=== PATIENT | female | born 1950 | race Caucasian/White ===

== ENCOUNTER 2018-08-30 11:11 | Outpatient (REF) | payer BC, SELFPAY ==
[2018-08-30 13:39] LABS: ALT 32 U/L (12-78); AST 18 U/L (15-37); Albumin 3.5 g/dL (3.4-5.0); Alkaline Phosphatase 108 U/L (46-116); Anion Gap 7.5 mmol/L (3-11); BUN 24 mg/dL (7-18); CO2 31.5 mmol/L (21.0-32.0); Calcium 8.7 mg/dL (8.5-10.1); Chloride 103 mmol/L (98-107); Cholesterol 125 mg/dL (50-200); Estimated GFR 55.64 (mL/min/1.73m2); Glucose 247 mg/dL (70-100); HDL Cholesterol 67 mg/dL (40-60); LDL CHOLESTEROL 49 mg/dL (<100); Magnesium 1.3 mg/dL (1.8-2.4); Potassium 4.3 mmol/L (3.5-5.1); Sodium 142 mmol/L (136-145); Triglyceride 84 mg/dL (30-150)
== END 2018-08-30 11:31 ==
LOC: NCHCN 11:11
PROVIDERS: PCP Family Medicine; Visit Provider Family Medicine
DX: E83.42 Hypomagnesemia (principal); E11.9 Type 2 diabetes mellitus without complications; Z79.4 Long term (current) use of insulin; I10 Essential (primary) hypertension; E66.01 Morbid (severe) obesity due to excess calories; E78.5 Hyperlipidemia, unspecified
CPT/HCPCS: 80053; 80061; 83721; 83735

== ENCOUNTER 2018-10-18 00:43 | Outpatient (CLI) | payer BC, SELFPAY ==
--- NOTE | 2018-10-18 16:46 | DI.RAD_ITS ---
SYMPTOMS/DIAGNOSIS: BONE DISORDER, M89.9 DEXA SCAN WITH KARRIE: The KARRIE image shows no evidence of compression fractures. The bone mineral density measurements of the lumbar spine correspond to a total T score of 1.3, in the normal range. There are significant degenerative changes , which could falsely elevated the bone mineral density measurements. The bone mineral density measurements of the left hip correspond to a total T score of 1.8 and a femoral neck T score of 0.1, in the normal range. The bone mineral density measurements of the left forearm correspond to a total T score of 0.7 and a T score of the distal third of 1.5, in the normal range. IMPRESSION: Normal bone mineral density.
== END 2018-10-18 01:03 ==
PROVIDERS: PCP Family Medicine; Visit Provider Internal Medicine
DX: M89.9 Disorder of bone, unspecified (principal)
CPT/HCPCS: 77080

== ENCOUNTER 2018-10-26 00:43 | Outpatient (CLI) | payer BC, SELFPAY ==
--- NOTE | 2018-10-26 11:18 | DI.MAMMO_ITS ---
SYMPTOMS/DIAGNOSIS: SCREENING, Z12.31 MAMMOGRAMS: Mammograms were interpreted according to the usual protocol including computer analysis with CAD system, tomosynthesis and C view imaging. Comparison is with the prior examinations. No suspicious masses or microcalcifications are seen. There is a new focal asymmetric density in the outer right breast seen on the craniocaudad view. Spot compression and a right breast ultrasound are requested for further evaluation. IMPRESSION: Additional views of the right breast as described above. Category 0. Breast density A. MQSA ASSESSMENT OF FINDINGS: Incomplete: Needs additional imaging evaluation. Category 0. Patient will receive a letter notifying them of these results. BI-RAD category A. The breasts are almost entirely fatty.
== END 2018-10-26 01:03 ==
PROVIDERS: PCP Family Medicine; Visit Provider Family Medicine
DX: Z12.31 Encounter for screening mammogram for malignant neoplasm of breast (principal); R92.8 Other abnormal and inconclusive findings on diagnostic imaging of breast
CPT/HCPCS: 77063; 77067

== ENCOUNTER 2018-11-23 00:26 | Outpatient (CLI) | payer BC, SELFPAY ==
--- NOTE | 2018-11-23 09:50 | DI.COMBO_ITS ---
SYMPTOMS/DIAGNOSIS: F/U MAMMO, FOCAL ASYMMETRIC DENSITY ADDITIONAL VIEWS OF THE RIGHT BREAST AND RIGHT BREAST ULTRASOUND: Additional images are interpreted according to the usual protocol including tomosynthesis and 2D imaging. Breast density A. Additional views of the right breast fail to show a persistent discrete mass in the area of concern. There does appear to be a well circumscribed round nodule in the outer right breast. This appears to have been present on prior examinations. A right breast ultrasound was performed. The upper outer and lower quadrants were evaluated sonographically. At the 9:00 o'clock position 3 cm from the nipple there is a rounded anechoic avascular lesion measuring 0.3 cm maximally most suggestive of a cyst and appears to correspond to the mammographic abnormality. IMPRESSION: No definite evidence for malignancy. A 6 month follow up mammogram is recommended for re-evaluation. Category 3. The findings were discussed with the patient on the date of the examination. MQSA ASSESSMENT OF FINDINGS: Probably benign. Six month follow-up recommended. Category 3. Patient will receive a letter notifying them of these results. BI-RAD category A. The breasts are almost entirely fatty.
== END 2018-11-23 00:46 ==
PROVIDERS: PCP Family Medicine; Visit Provider Family Medicine
DX: Z12.31 Encounter for screening mammogram for malignant neoplasm of breast (principal); R92.8 Other abnormal and inconclusive findings on diagnostic imaging of breast; N60.01 Solitary cyst of right breast
CPT/HCPCS: 76642; 77063; 77067

== ENCOUNTER 2019-03-14 13:05 | Outpatient (REF) | payer MEDICARE, OTHER, SELFPAY ==
[2019-03-14 18:14] LABS: BUN 21 mg/dL (7-18); CREATININE 0.98 mg/dL (0.55-1.02); Calcium 9.1 mg/dL (8.5-10.1); Chloride 100 mmol/L (98-107); Estimated GFR 56.78 (mL/min/1.73m2); Glucose 211 mg/dL (70-100); Magnesium 1.2 mg/dL (1.8-2.4); Potassium 4.9 mmol/L (3.5-5.1); Sodium 137 mmol/L (136-145)
== END 2019-03-14 13:25 ==
LOC: NCHCN 13:05
PROVIDERS: PCP Family Medicine; Visit Provider Family Medicine
DX: I10 Essential (primary) hypertension (principal); E83.42 Hypomagnesemia
CPT/HCPCS: 80048; 83735

== ENCOUNTER 2019-06-14 08:35 | Outpatient (REF) | payer MEDICARE, OTHER, SELFPAY ==
[2019-06-14 12:58] LABS: Anion Gap 11.2 mmol/L (3-11); BUN 14 mg/dL (7-18); CO2 26.8 mmol/L (21.0-32.0); CREATININE 1.03 mg/dL (0.55-1.02); Calcium 8.4 mg/dL (8.5-10.1); Chloride 104 mmol/L (98-107); Estimated GFR 53.61 (mL/min/1.73m2); Glucose 134 mg/dL (70-100); Magnesium 1.2 mg/dL (1.8-2.4); Potassium 4.1 mmol/L (3.5-5.1); Sodium 142 mmol/L (136-145)
[2019-06-15 11:04] LABS: Hepatitis C Ab w Rflx HCV PCR Negative (NEGAT)
== END 2019-06-14 08:55 ==
LOC: NCHCN 08:35
PROVIDERS: PCP Family Medicine; Visit Provider Family Medicine
DX: I10 Essential (primary) hypertension (principal); E83.42 Hypomagnesemia; E11.9 Type 2 diabetes mellitus without complications; Z79.4 Long term (current) use of insulin; Z11.59 Encounter for screening for other viral diseases
CPT/HCPCS: 80048; 86803; 83735

== ENCOUNTER 2019-08-08 01:19 | Outpatient (CLI) | payer MEDICARE, OTHER, SELFPAY ==
[2019-08-08 08:45] LABS: CREATININE 1.21 mg/dL (0.55-1.02); Estimated GFR 44.52 (mL/min/1.73m2)
[2019-08-08] MEDS: Omnipaque 350 MG/ML 100 ML BTL IJ (09:58)
--- NOTE | 2019-08-08 10:00 | DI.CT_ITS ---
EXAM: CT ABDOMEN PELVIS W CLINICAL HISTORY: ABD PAIN, R10.9,BLATING, FULLNESS ON EXAM. TECHNIQUE: The examination was carried out according to the usual protocol with an intravenous admin istration of 100 cc of Omnipaque 350. There is oral ingestion of dilute Omnipaque. COMPARISON: No exams were available for comparison FINDINGS: There is no acute abnormality involving the lung bases. A very large quantity of ascitic fluid is id entified. The liver appears intact. Patient is status post cholecystectomy. The pancreas is poorly seen but appears grossly normal. The spleen is intact. There are atrophic changes involving the left kidney and there is compensatory hypertrophy of the right kidney. There is no evidence of a mass or hydronephrosis. The adrenals are intact. There is no evidence of bowel obstruction. There is nothi ng to suggest an acute appendix. A 18 by 19 cm ovoid mass projects up out of the pelvis and contains solid elements. The uterus appears intact. The bladder is decompressed. A left para-aortic lymph n ode measures up to 19 mm in maximal diameter. An enlarged right para-aortic lymph node is noted as w ell measuring up to 2.9 mm. No definite pelvic adenopathy is seen. There is no evidence of an aorti c aneurysm. There are mild degenerative changes involving the lumbar spine. No localized area of scl erosis, osteolysis or bony expansion is identified. IMPRESSION: Gross ascites is demonstrated. A large pelvic and lower abdominal mass measuring up to [address] in the axial plane is demonstrated. Periaortic adenopathy is identified. 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
[2019-08-08] MEDS: Omnipaque 350 MG/ML 50 ML BTL PO (10:03)
[2019-08-08] MEDS: Breeza Beverage 473 ML BTL PO (10:03)
== END 2019-08-08 01:39 ==
PROVIDERS: PCP Family Medicine; Visit Provider Family Medicine
DX: R10.9 Unspecified abdominal pain (principal); R14.0 Abdominal distension (gaseous); R19.00 Intra-abdominal and pelvic swelling, mass and lump, unspecified site; R59.0 Localized enlarged lymph nodes
CPT/HCPCS: 74177; 82565; J3490; Q9967

== ENCOUNTER 2019-09-24 13:43 | Emergency (ER) | payer MEDICARE, OTHER, SELFPAY ==
[2019-09-24 13:55] VITALS: BP 103/35; PULSE 61; RESP 17; TEMP 36.8; O2SAT 94
--- NOTE | 2019-09-24 14:16 | ED.GENADUL_ITS ---
Discharge Plan Discharge Details Chief Complaint: [facility] Primary Care Provider: Pineda Yap ED Provider: Tari Morgan Home Meds and New Rx's Prescriptions: No Action hydrocortisone [Preparation H Hydrocortisone] 1 % cream 1 applic TP BID PRNRF: 0 magnesium oxide 400 mg magnesium tablet 400 mg PO BID RF: 0 metformin 1,000 mg tablet extended release 24hr 1,000 mg PO BID RF: 0 losartan-hydrochlorothiazide 100-12.5 mg tablet 1 tab PO DAILY RF: 0 (DME) FreeStyle Test 1 EACH strip 1 ea Miscellaneous DIRECTED RF: 0 duloxetine 30 MG capsule,delayed release(DR/EC) 30 mg PO DAILY RF: 0 Lantus U-100 Insulin 100 unit/mL solution 45 unit subcut .COMPLEX RF: 0 albuterol sulfate 8.5 GM HFA aerosol inhaler 2 puff Inhalation PRN PRNRF: 0 ondansetron HCl [Zofran] 8 mg Tablet 8 mg PO PRN PRNRF: 0 oxycodone 5 mg Tablet 5 mg PO PRN PRNRF: 0 ibuprofen 600 mg Tablet 600 mg PO PRN PRNRF: 0 sennosides [senna] 8.6 mg Tablet 2 mg PO BID RF: 0 cholecalciferol (vitamin D3) [Vitamin D3] 2,000 unit Capsule 4,000 unit PO HS RF: 0 Discharge Data Discharge Date/Time-TO BE ENTERED AT DEPARTURE: 09/24/19 17:53 Medical Decision Making <Say Claros MD - Last Filed: 10/26/19 16:20> 1429 --68-year-old female with multiple medical problems, 9 days status post significant abdominal surgery including total abdominal hysterectomy and bilateral salpingo-oophorectomy with removal bilateral enlarged complex ovarian masses thought to be malignancy (biopsy pending), here with bilateral lower extremity edema and dyspnea on exertion progressive over the past 1 to 2 days. ECG was reviewed and interpreted by me: Sinus rhythm 60 bpm, normal axis, frequent PACs, poor R wave progression, no STEMI, nondiagnostic. Concern for CHF versus ISABEL versus volume overload and compression from abdominal ascites versus other. --Chest x-ray reviewed and interpreted by me: Bilateral pleural effusions. Patient had difficult IV access. Labs still pending. 16:15 -- Labs reviewed and BNP elevated 2400. Cr elevated from baseline at 1.54. Albumin low at 1.9. Will give lasix 20meq. I spoke with Dr. Vasquez who feels patient should be transferred to [facility]. Care signed out to RANDY Rick with plan to arrange for transfer to [facility]. <RANDY Nowak - Last Filed: 09/27/19 08:16> Accepted signout of patient from Dr. Say Claros pending disposition. See Dr. Claros's HPI and physical exam above for specific details. I spoke with [facility] where patient had her surgery 9 days ago. Specifically spoke with Dr. Ball of gynecology oncology who was made aware of patient's presentation to the emergency room today, mild CHF as well as mild renal insufficiency in conjunction to presentation including ascites, pleural effusions as well as distal edema bilaterally. He will accept this patient's transfer directly to the medicine floor. We will plan of care to call ground transport. Patient agrees with plan of care HPI <Say Claros MD - Last Filed: 10/26/19 16:20> General Mode of arrival: ambulatory . Date/Time Provider Initiated Documentation: 09/24/19 13:47 . Limitations to Documentation: no limitations . Information obtained by: patient . HPI Narrative: 68-year-old female with history of coronary artery disease, hyperlipidemia, hypertension, morbid obesity, insulin dependent diabetes, 9 days status post total abdominal hysterectomy with bilateral salpingo-oophorectomy with removal of bilateral and large complex ovarian masses, anterior pelvic peritoneum ectomy, right peritoneum ectomy, right ureteral lysis, appendectomy and total omentectomy, here today with chief complaint of leg swelling. Patient notes over the past 2 days she is had progressively worsening edema of her lower extremities. Symptoms are now moderate to severe. No modifiers. She has associated dyspnea on exertion and orthopnea. Patient denies chest pain. Abdominal swelling has persisted since surgery. She does note that her surgical wounds have been leaking since surgery. No fever. Wounds without any significant inflammation. Related Data Home Medications Medication Instructions Recorded Confirmed albuterol sulfate 2 puff INHALATION PRN PRN 09/29/13 10/20/19 blood sugar diagnostic [Freestyle strip 01/07/15 08/15/19 Test Strips] duloxetine 30 mg PO DAILY 01/07/15 10/20/19 hydrocortisone 1 % topical cream 1 applic TP BID PRN 08/15/19 10/20/19 insulin glargine 100 unit/mL 45 unit SUBCUT .COMPLEX ml 08/15/19 10/20/19 subcutaneous solution losartan 100 1 tab PO DAILY 08/15/19 10/20/19 mg-hydrochlorothiazide 12.5 mg tablet magnesium oxide 400 mg PO BID 08/15/19 10/20/19 metformin 1,000 mg tablet,extended 1,000 mg PO BID 08/15/19 10/20/19 release 24hr cholecalciferol (vitamin D3) 4,000 unit PO HS 09/24/19 10/20/19 [Vitamin D3] ibuprofen 600 mg PO PRN PRN 09/24/19 10/20/19 sennosides [senna] 2 mg PO BID 09/24/19 10/20/19 ondansetron HCl [Zofran] 8 mg PO PRN PRN 10/20/19 10/20/19 oxycodone 5 mg PO PRN PRN 10/20/19 10/20/19 Allergies Allergy/AdvReac Type Severity Reaction Status Date / Time atenolol Allergy Unknown Unverified 10/20/19 07:36 lisinopril AdvReac Intermediate Unverified 10/20/19 07:36 General Stated Complaint: GenMedical EMILY: 3 Review of Systems <Say Claros MD - Last Filed: 10/26/19 16:20> All systems reviewed & are unremarkable except as noted in HPI and below Constitutional Constitutional: Denies fever(s) Cardiovascular Cardiovascular: Denies chest pain, Reports dyspnea on exertion and Reports orthopnea Respiratory Respiratory: Reports dyspnea on exertion Genitourinary Genitourinary: Denies urinary hesitancy PFSH <Say Claros MD - Last Filed: 10/26/19 16:20> Social History Smoking/Tobacco Use Status: Never Alcohol Intake: never Drug use: Never Substance use type: does not use Do you feel safe at home: Yes Do you feel safe in your relationship?: Yes Exam <Say Claros MD - Last Filed: 10/26/19 16:20> Const General: cooperative and no acute distress HENMT Mouth: moist mucous membranes Eyes Conjunctivae: normal conjunctivae Sclera: normal sclerae Neck Neck: trachea midline and supple Resp Auscultation: clear to auscultation bilaterally, no rales, no rhonchi and no wheezes Cardio Jugular venous pressure: no JVD Rate: regular rate and not tachycardic Rhythm: regular rhythm Heart Sounds: murmur systolic II/ GI Inspection: distended Palpation: soft, not firm, no guarding, no masses, not rigid and nontender Skin General skin exam: no rashes or lesions noted Other: abdominal wound stapled without erythema or induration Neuro General: alert, awake, oriented x3 and tone normal Extrem General: no calf tenderness and edema Laterality: bilateral (3+ pitting) Psych Appearance: grossly normal Mental Status: mental status grossly normal Course <Say Claros MD - Last Filed: 10/26/19 16:20> Vital Signs Vital signs: Vital Signs Temperature 36.8 C 09/24/19 13:55 Pulse 61 09/24/19 13:55 Respiratory Rate 17 09/24/19 13:55 Blood Pressure 103/35 L 09/24/19 13:55 Pulse Oximetry 94 L 09/24/19 13:55 Temperature 36.8 C 09/24/19 13:55 Temperature Source Skin 09/24/19 13:55 Pulse 61 09/24/19 13:55 Respiratory Rate 17 09/24/19 13:55 Blood Pressure 103/35 L 09/24/19 13:55 Blood Pressure Position Sitting 09/24/19 13:55 Pulse Oximetry 94 L 09/24/19 13:55 Oxygen Delivery Method Room Air 09/24/19 13:55 Oxygen Flow Rate 0 09/24/19 13:55 Sign Out <Say Claros MD - Last Filed: 10/26/19 16:20> Sign Out Data: Sign Out Comment: Discussed with [facility] gynonc for likely transfer. Last updated by Say Claros MD at 09/24/19 16:20
[2019-09-24 15:33] VITALS: BP 116/54; PULSE 64; RESP 16; TEMP 36.6; O2SAT 97
[2019-09-24 15:34] LABS: Abs Immature Grans 0.08 k/cumm (0.0-0.09); Absolute Basophil Count 0.01 k/cumm (0.0-0.2); Absolute Eosinophil Count 0.03 k/cumm (0.0-0.7); Absolute Lymphocyte Count 0.74 k/cumm (1.2-3.4); Absolute Monocyte Count 0.76 k/cumm (0.11-0.7); Absolute Neutrophil Count 8.14 k/cumm (1.2-6.7); Basophils % 0.1; Eosinophils % 0.3; HCT 32.4 % (36.0-46.0); HGB 10.3 g/dL (12.0-15.5); Immature Grans % 0.8; Lymphocytes % 7.6; Mean Corp. HGB Concentration 31.8 g/dL (32.0-36.0); Mean Corpuscular Hemoglobin 30.3 pg (27.0-33.0); Mean Corpuscular Volume 95.3 fL (80-95); Mean Platelet Volume 8.7 fL (8.0-11.0); Monocytes % 7.8; Neutrophils % 83.4; Platelet Count 523 x1000/uL (130-400); RBC Distribution Width 17.1 % (11.7-14.6); White Blood Cell Count 9.76 k/cumm (4.4-10.8)
--- NOTE | 2019-09-24 15:48 | DI.RAD_ITS ---
EXAM: XR CHEST 2V PA LATERAL INDICATION: Dyspnea on exertion COMPARISON: No exams were available for comparison TECHNIQUE: 2D digital imaging was performed. FINDINGS: Heart size is at the upper limits of normal. There is prominence of the pulmonary vasculature. Ther e are bilateral pleural effusions. Bilateral infiltrates are also noted. These may represent areas of atelectasis or pneumonia. No pneumothorax is identified. There are degenerative changes seen in the spine. IMPRESSION: Findings which may represent heart failure or pneumonia. Please correlate clinically.
[2019-09-24 15:54] LABS: ALT 20 U/L (14-59); AST 25 U/L (15-37); Albumin 1.9 g/dL (3.4-5.0); Alkaline Phosphatase 138 U/L (46-116); Anion Gap 9.5 mmol/L (3-11); BUN 36 mg/dL (7-18); Bilirubin, Total 0.3 mg/dL (0.2-1.0); CO2 25.5 mmol/L (21.0-32.0); CREATININE 1.54 mg/dL (0.55-1.02); Chloride 105 mmol/L (98-107); Glucose 236 mg/dL (70-100); NT-proBNP 2406 pg/mL; Potassium 4.6 mmol/L (3.5-5.1); Sodium 140 mmol/L (136-145); Total Protein 5.6 g/dL (6.4-8.2); Troponin I < 0.05 ng/mL (0.00-0.06)
[2019-09-24 15:55] VITALS: RESP 16
--- NOTE | 2019-09-24 16:24 | DI.VRAD_ITS ---
PROCEDURE INFORMATION: Exam: XR Chest, 2 Views Exam date and time: 09/24/2019 3:44 PM Clinical history: 68 years old, female; Other: [place] TECHNIQUE: Imaging protocol: XR of the chest Views: 2 views. COMPARISON: No relevant prior studies available. FINDINGS: Lungs: There some hazy increased reticular markings in both lungs consistent with mild pulmonary edema and scattered areas of subsegmental atelectasis. Pleural space: There is slight cephalization of flow. There is blunting of both costophrenic angles consistent with bilateral small to moderate-sized pleural effusions. Heart/Mediastinum: The heart is mildly enlarged. Bones/joints: Mild spondylosis of the thoracic spine.. IMPRESSION: Findings consistent with mild to moderate CHF. Dictated and Authenticated by: Alessandro Montes De Oca MD. Ordering:CHESTER Deal MD
[2019-09-24] MEDS: Furosemide 20 MG/2 ML VIAL IVP (16:27)
== END 2019-09-24 17:53 ==
PROVIDERS: Student in an Organized Health Care Education/Training Program; Emergency Provider Physician Assistant; PCP Family Medicine
DX: R60.0 Localized edema (principal); R06.09 Other forms of dyspnea; J90 Pleural effusion, not elsewhere classified; Y83.6 Removal of other organ (partial) (total) as the cause of abnormal reaction of the patient, or of later complication, without mention of misadventure at the time of the procedure; E11.40 Type 2 diabetes mellitus with diabetic neuropathy, unspecified; Z79.4 Long term (current) use of insulin; I10 Essential (primary) hypertension
CPT/HCPCS: 36415; 51701; 80053; 93005; 96374; 99285; 71046; 83880; 84484; 85025; 93010; J1941

== ENCOUNTER 2019-10-20 07:07 | Emergency (ER) | payer MEDICARE, SELFPAY ==
[2019-10-20] VITALS (62 sets, daily range): BP systolic 69–138; BP diastolic 46–115; PULSE 63–170; RESP 17–34; TEMP 36.7; O2SAT 97–100
--- NOTE | 2019-10-20 07:24 | W.ED.GENAD ---
Discharge Plan Disposition Patient Disposition: [facility] Condition: Critical Discharge Details Chief Complaint: SOB Clinical Impression: Atrial fibrillation, Pleural effusion Primary Care Provider: Pineda Yap ED Provider: Say Claros Home Meds and New Rx's Prescriptions: No Action hydrocortisone [Preparation H Hydrocortisone] 1 % cream 1 applic TP BID PRNRF: 0 magnesium oxide 400 mg magnesium tablet 400 mg PO BID RF: 0 metformin 1,000 mg tablet extended release 24hr 1,000 mg PO BID RF: 0 losartan-hydrochlorothiazide 100-12.5 mg tablet 1 tab PO DAILY RF: 0 (DME) FreeStyle Test 1 EACH strip 1 ea Miscellaneous DIRECTED RF: 0 duloxetine 30 MG capsule,delayed release(DR/EC) 30 mg PO DAILY RF: 0 Lantus U-100 Insulin 100 unit/mL solution 45 unit subcut .COMPLEX RF: 0 albuterol sulfate 8.5 GM HFA aerosol inhaler 2 puff Inhalation PRN PRNRF: 0 ondansetron HCl [Zofran] 8 mg Tablet 8 mg PO PRN PRNRF: 0 oxycodone 5 mg Tablet 5 mg PO PRN PRNRF: 0 ibuprofen 600 mg Tablet 600 mg PO PRN PRNRF: 0 sennosides [senna] 8.6 mg Tablet 2 mg PO BID RF: 0 cholecalciferol (vitamin D3) [Vitamin D3] 2,000 unit Capsule 4,000 unit PO HS RF: 0 Discharge Data Discharge Date/Time-TO BE ENTERED AT DEPARTURE: 10/20/19 12:39 Medical Decision Making <Jarek Aguilar MD - Last Filed: 10/23/19 23:11> Patient arrives to ED in rapid atrial fibrillation with complaint of shortness of breath. She has significant bilateral lower extremity edema. She has relatively clear lungs. She has metastatic pancreatic cancer and received her first round of chemo on Wednesday. She appears to be extremely pale. EMS had accessed her port and gave 10 mg of diltiazem. Heart rate had come down from the 180 range to 150?160 range. Repeat bolus of Cardizem 10 mg ordered as well as infusion. Laboratory studies, EKG, portable chest x-ray ordered. Need to consider PE as a possibility and may need CTA of the chest but will wait for creatinine to return. She also seems markedly anemic so type and screen ordered. Port needed to be reaccessed here as the hub did not seem to be in the correct place. This was done without event. She has received a Cardizem bolus. Her EKG shows a rapid A. fib with nonspecific ST changes that are likely rate related. Labs and chest x-ray still pending. Medical Records Medical records reviewed: Yes I reviewed the patient's medical records. ECG Data Attestation: I personally reviewed and interpreted this ECG (s) as follows: Prior ECG tracings: not available for review Interpretation: Rapid A. fib at a rate of 161. Normal axis and intervals. Nonspecific ST changes and ST depression likely rate related. <Say Claros MD - Last Filed: 10/21/19 17:58> 8:15 --care signed out by Dr. Aguilar with plan to follow-up on CT and disposition patient. Please see his documentation regarding initial ED presentation and course. The patient was reassessed and noted to be persistently tachycardic in atrial fibrillation with improved rate from prior now on diltiazem drip. Saturating well on nasal cannula oxygen. BP improved from arrival. 9:28 --CT of the chest was interpreted by radiology: Bilateral pleural effusions, no pulmonary embolism. Labs reviewed and creatinine normal. Initial troponin elevated at 0.36. Magnesium is low at 0.9. Hemoglobin is 8.0. This is a significant drop from recent prior 10.3 09/24/2019. Plan to administer PRBC 1 unit slow infusion. Will give magnesium 1 g IV. Plan for transfer to [facility] higher level of care. I called transfer center to request transfer. 9:42 --spoke with ICU physician at [facility] who will accept patient for Dr. Dickerson. Discussed ED presentation and course including all diagnostic results. They recommend holding blood at this time. They recommend covering with antibiotic for possible PNA. Transfer pending bed confirmation. Repeat BP 83/51. Will give normal saline 250 mL bolus. 10:20 --BP improved after single 250 bolus. I called and spoke with [facility] critical care and updated them as to course. They do recommend starting heparin -hold bolus and start infusion. Bed confirmed at [facility]. -- BNP 4000. -- Patient noted to be hypotensive with systolic in the 70s and tachycardic 120s in A. fib while transitioning to EMS bed. Decision made to cardiovert atrial fibrillation given unstable and risk of transfer. Patient provided informed consent after review of risk and benefits. Electrical cardioversion performed, 120 J administered, patient converted to sinus rhythm with PACs. Heart rate in the 80s. BP improved. Repeat ECG was reviewed and interpreted by me: Sinus rhythm 81 bpm with frequent PACs. Cardizem was discontinued. Plan for transfer at this time. HPI <Jarek Aguilar MD - Last Filed: 10/23/19 23:11> General Mode of arrival: EMS. Date/Time Provider Initiated Documentation: 10/20/19 07:20. Limitations to Documentation: no limitations. Information obtained by: patient, EMS and RN notes reviewed. HPI Narrative: Patient presents to ED by ambulance with shortness of breath. Patient has a recent diagnosis of metastatic pancreatic cancer. She had surgery last month at [facility] which removed a large mass including her appendix, omentum, ovaries, fallopian tubes and uterus. Ultimately, found to be metastatic pancreatic cancer. She underwent her initial chemo on Wednesday of this week. She has had episodes of shortness of breath with exertion and lightheadedness. This morning around 2 she became short of breath more so than usual. Became progressively worse. Eventually EMS was called. She was found to have rapid A. fib in the 180 range. She has no prior history of A. fib. Port was accessed and she was given 10 mg of diltiazem IV on the way in. She was placed on oxygen. She arrives here feeling better but still obviously tachypneic and tachycardic. She denies any fever. She denies any pain. There is no chest tightness or heaviness. She has significant swelling of lower extremities which is been present since the surgery. She actually reports that it probably better than its been in the past but is still pretty significant. Related Data Home Medications Medication Instructions Recorded Confirmed albuterol sulfate 2 puff INHALATION PRN PRN 09/29/13 10/20/19 blood sugar diagnostic [Freestyle strip 01/07/15 08/15/19 Test Strips] duloxetine 30 mg PO DAILY 01/07/15 10/20/19 hydrocortisone 1 % topical cream 1 applic TP BID PRN 08/15/19 10/20/19 insulin glargine 100 unit/mL 45 unit SUBCUT .COMPLEX ml 08/15/19 10/20/19 subcutaneous solution losartan 100 1 tab PO DAILY 08/15/19 10/20/19 mg-hydrochlorothiazide 12.5 mg tablet magnesium oxide 400 mg PO BID 08/15/19 10/20/19 metformin 1,000 mg tablet,extended 1,000 mg PO BID 08/15/19 10/20/19 release 24hr cholecalciferol (vitamin D3) 4,000 unit PO HS 09/24/19 10/20/19 [Vitamin D3] ibuprofen 600 mg PO PRN PRN 09/24/19 10/20/19 sennosides [senna] 2 mg PO BID 09/24/19 10/20/19 ondansetron HCl [Zofran] 8 mg PO PRN PRN 10/20/19 10/20/19 oxycodone 5 mg PO PRN PRN 10/20/19 10/20/19 Allergies Allergy/AdvReac Type Severity Reaction Status Date / Time atenolol Allergy Unknown Unverified 10/20/19 07:36 lisinopril AdvReac Intermediate Unverified 10/20/19 07:36 General Stated Complaint: SOB EMILY: 2 Review of Systems <Jarek Aguilar MD - Last Filed: 10/23/19 23:11> Narrative: 08/28 Review of Systems completed and is negative except as stated above in HPI (Systems reviewed: Const, Eyes, ENT, Resp, CV, GI, , MSK, Skin, Neuro) PFSH <Jarek Aguilar MD - Last Filed: 10/23/19 23:11> Medical History CAD (coronary artery disease) (Chronic) Diabetic neuropathy (Chronic) Hyperlipidemia (Chronic) Hypertension (Chronic) 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 Tachycardic with soft pressures. O2 saturations 96% on 2 L. Const: Morbidly obese female who is extremely pale and tachypneic but not in distress. HEENT: NC/AT. Normal facial exam. Eyes: Very pale conjunctiva. Neck: Supple. Trachea midline. Lungs: Tachypneic but not in distress. Lungs relatively clear except for maybe a few rhonchi at the bases. Cor: Irr/Irr and tachy, no murmur heard but fast rate. GI: Soft and seems distended, non-tender. Neuro: A+O x 3. Normal mentation and speech. No gross motor or sensory deficit. Ext: Significant bilateral lower extremity edema. No calf tenderness. Skin: Cool and dry without rash. Course <Jarek Aguilar MD - Last Filed: 10/23/19 23:11> Vital Signs Vital signs: Vital Signs Temperature 98.1 F 10/20/19 07:18 Pulse 167 H 10/20/19 07:18 Respiratory Rate 22 10/20/19 07:18 Blood Pressure 98/64 L 10/20/19 07:18 Temperature 98.1 F 10/20/19 07:18 Temperature Source Temporal Artery Scan 10/20/19 07:18 Pulse 167 H 10/20/19 07:18 Respiratory Rate 22 10/20/19 07:18 Blood Pressure 98/64 L 10/20/19 07:18 Pain Level 0 10/20/19 07:18 Critical Care Time <Jarek Aguilar MD - Last Filed: 10/23/19 23:11> Critical Care Time Critical Care Time: Yes Total Critical Care Time: 40 Attestation: Upon my evaluation, this patient had a high probability of imminent or life-threatening deterioration, which required my direct attention, intervention, and personal management. I have personally provided minutes of critical care time exclusive of time spent on separately billable procedures. Time includes review of laboratory data, radiology results, discussion with consultants, and monitoring for potential decompensation. Interventions were performed as documented above. <Say Claros MD - Last Filed: 10/21/19 17:58> Critical Care Time Critical Care Time: Yes Total Critical Care Time: 45 Attestation: I spent greater than 45 minutes addresssing this patient's immediate life threats. Sign Out <Jarek Aguilar MD - Last Filed: 10/23/19 23:11> Sign Out Data: Sign Out Comment: Patient's heart rate continues to vary from a low of 120 to a high of 150. She received another 5 mg of Cardizem bolus and a drip increased to 10 mg. Laboratory studies are still pending. Blood pressure continues to be a little soft so she is getting a to 50 mL bolus. Care signed over to Dr. Claros. Last updated by Jarek Aguilar MD at 10/20/19 08:13
[2019-10-20] MEDS: dilTIAZem 25 MG/5 ML VIAL 10 MG IVP (07:31)
--- NOTE | 2019-10-20 07:38 | DI.RAD_ITS ---
EXAM: XR PORTABLE CHEST AP INDICATION: SOB. COMPARISON: XR CHEST 2V PA LATERAL from 09/24/2019 TECHNIQUE: 2D digital imaging was performed. FINDINGS: The heart is at the upper limits of normal in size given the projection. There has been interval eleazar cement of a right indwelling central venous catheter. The tip of the catheter is seen at the junctio n of the superior vena cava and right atrium. There has been interval increase in size of the left p leural effusion which is now moderately large and occupies half of the left hemithorax. There is a l eft basilar infiltrate that may represent atelectasis or pneumonia. No pneumothorax is identified. Degenerative changes are seen in the spine. There is mild prominence of the interstitium bilaterally . IMPRESSION: 1. Interval increase in size of the left pleural effusion 2. Bilateral basilar infiltrates. This may represent atelectasis or pneumonia 3. Prominent interstitium which may reflect interstitial edema.
[2019-10-20] MEDS: dilTIAZem 125 MG in Normal Saline 100 ML IV (07:43)
[2019-10-20 07:51] LABS: Abs Immature Grans 0.11 k/cumm (0.0-0.09); Absolute Lymphocyte Count 0.16 k/cumm (1.2-3.4); HCT 25.7 % (36.0-46.0); Immature Grans % 0.8; Lymphocytes % 1.2; Mean Corp. HGB Concentration 31.1 g/dL (32.0-36.0); Mean Corpuscular Hemoglobin 30.1 pg (27.0-33.0); Mean Corpuscular Volume 96.6 fL (80-95); Mean Platelet Volume 9.5 fL (8.0-11.0); Monocytes % 0.4; Neutrophils % 97.6; RBC 2.66 m/cumm (4.00-5.20); RBC Distribution Width 15.8 % (11.7-14.6); White Blood Cell Count 13.47 k/cumm (4.4-10.8)
[2019-10-20 08:01] LABS: Absolute Monocyte Count 0.05 k/cumm (0.11-0.7); Absolute Neutrophil Count 13.15 k/cumm (1.2-6.7)
[2019-10-20] MEDS: dilTIAZem 25 MG/5 ML VIAL 5 MG IVP (08:01)
[2019-10-20] MEDS: Normal Saline 250 ML IV (08:01)
[2019-10-20 08:13] LABS: ALT 46 U/L (14-59); AST 74 U/L (15-37); Albumin 1.5 g/dL (3.4-5.0); Alkaline Phosphatase 107 U/L (46-116); Anion Gap 6.8 mmol/L (3-11); BUN 19 mg/dL (7-18); Bilirubin, Total 0.7 mg/dL (0.2-1.0); CO2 30.2 mmol/L (21.0-32.0); CREATININE 1.03 mg/dL (0.55-1.02); Calcium 7.5 mg/dL (8.5-10.1); Chloride 101 mmol/L (98-107); Estimated GFR 53.61 (mL/min/1.73m2); Glucose 140 mg/dL (74-106); Magnesium 0.9 mg/dL (1.8-2.4); Potassium 3.7 mmol/L (3.5-5.1); Sodium 138 mmol/L (136-145)
[2019-10-20 08:17] LABS: Troponin I 0.36 ng/Ml (<0.06)
[2019-10-20 08:18] LABS: Diff Comment RBC Morph Reviewed; Hypochromasia 1+; Platelet Count 362 x1000/uL (130-400)
--- NOTE | 2019-10-20 08:25 | DI.VRAD_ITS ---
PROCEDURE INFORMATION: Exam: XR Chest, 1 View Exam date and time: 10/20/2019 7:24 AM Age: 68 years old Clinical history: Shortness of breath TECHNIQUE: Imaging protocol: XR of the chest Views: 1 view. COMPARISON: CR XR CHEST 2V PA LATERAL 09/24/2019 3:41 PM FINDINGS: Tubes, catheters and devices: New right chest port. Tip overlying SVC right atrial junction. Overlying cardiac monitoring leads. Lungs: Large left pleural effusion and increased left basilar atelectasis. Minimal right basilar atelectasis as well. Mild interstitial edema. Pleural space: Unremarkable. No pleural effusion. No pneumothorax. Heart/Mediastinum: Cardiac enlargement. Upper abdomen: Bowel gas pattern unremarkable. Bones/joints: Multilevel thoracolumbar spondylosis and mildly accentuated mid thoracic right convex curvature. IMPRESSION: 1. Large left pleural effusion and increased left basal atelectasis. 2. Cardiomegaly and moderate CHF. Dictated and Authenticated by: Noel Mcmahon MD. Ordering:GIORGIO Tilley MD
--- NOTE | 2019-10-20 08:49 | DI.CT_ITS ---
EXAM: CT CHEST PE CTA CLINICAL HISTORY: dizzy, concern for PE, SOB TECHNIQUE: Imaging Protocol: Axial CT angiography was performed with multi-slice acquisition and mu lti-planar and/or 3D reconstructions. CONTRAST MATERIAL: Intravenous: Omnipaque 350 Contrast volume:100 mL contrast route:IV - Oral:No COMPARISON: CT ABDOMEN PELVIS W from 08/08/2019 FINDINGS: There is patient motion artifact. Pulmonary Arteries: No evidence of filling defect to suggest pulmonary emboli. Tracheobronchial tree: Patent where visualized. Mediastinum and Sarika: There is mediastinal adenopathy present. The largest lymph node is seen in the precarinal region and measures 2.9 x 2.3 centimeters. Pulmonary parenchyma: There are multiple pulmonary nodules present suspicious for metastatic disease. There are bilateral basilar infiltrates greater on the left. No architectural distortion. Pleura: There are large bilateral pleural effusions left greater than right. No pneumothorax is pres ent.. Heart/Aorta: There is no aortic aneurysm. 2. 7 x 2. 3 cm. There is no evidence of thoracic aortic aneurysm or dissection. There is mild atherosclerosis present. The heart is not dilated. There is no significant pericardial effusion. No evidence of right heart strain is present. Coronary artery ca lcifications are present. Tubes, lines, catheters: The tip of the patient's indwelling central venous catheter is in good posit ion at the junction of the superior vena cava and right atrium. Upper abdomen: Abdominal ascites is present. There is a hiatal hernia. IMPRESSION: 1. No evidence of a pulmonary embolus, thoracic aortic dissection or aneurysm. 2. Large bilateral pleural effusions and subjacent infiltrates which may represent atelectasis or pne umonia. 3. Thoracic adenopathy and multiple pulmonary nodules. Findings consistent with metastatic disease 4. Abdominal ascites. The findings were discussed with Dr. Claros of the emergency department on the date of the examinatio n. This is consistent with thoracic adenopathy of the superior vena cava and right atrium. DATA REPOSITORY: All CT scans at this facility are submitted to the National Radiology Data Registry (NRDR) Dose Index Registry (DIR) with the [employer] (A[employer]). RADIATION OPTIMIZATION: All CT scans at this facility use at least one of these dose optimization te chniques: automated exposure control; mA and/or kV adjustment per patient size (includes targeted exa ms where dose is matched to clinical indication); or iterative reconstruction.
[2019-10-20] MEDS: Omnipaque 350 MG/ML 100 ML BTL IV (09:05)
[2019-10-20 09:47] LABS: NT-proBNP 4220 pg/mL (<300)
[2019-10-20] MEDS: cefTRIAXone 1 GM/50 ML BAG IVPB (09:51)
[2019-10-20] MEDS: MAGNESIUM SULFATE 1 GM/100 ML BAG IVPB (10:02)
[2019-10-20] MEDS: Normal Saline 250 ML 500 ML IV (11:07)
[2019-10-20 11:10] LABS: PTT Activated 28.5 sec (21.0-31.4)
[2019-10-20] MEDS: fentaNYL 100 MCG/2 ML VIAL (12:05)
== END 2019-10-20 12:39 | disposition short-term general hospital (02) ==
PROVIDERS: Emergency Medicine; Emergency Provider Student in an Organized Health Care Education/Training Program; PCP Family Medicine
DX: I48.91 Unspecified atrial fibrillation (principal); J90 Pleural effusion, not elsewhere classified; D64.9 Anemia, unspecified; C25.9 Malignant neoplasm of pancreas, unspecified; R60.0 Localized edema; Z79.899 Other long term (current) drug therapy; Z95.828 Presence of other vascular implants and grafts; E11.9 Type 2 diabetes mellitus without complications; Z79.4 Long term (current) use of insulin; I10 Essential (primary) hypertension; E83.42 Hypomagnesemia; R00.0 Tachycardia, unspecified; R77.8 Other specified abnormalities of plasma proteins
CPT/HCPCS: 36430; 36591; 71275; 80053; 86850; 86900; 86901; 86920; 93005; 96361; 96365; 96366; 96367; 96368; 96375; 96376; 99291; 71045; 83735; 83880; 84484; 85025; 85730; 93010; J0696; J3010; J3475; J3490; P9016

== ENCOUNTER 2019-12-01 15:58 | Inpatient (IN) | payer MEDICARE, SELFPAY ==
[2019-12-01] VITALS (28 sets, daily range): BP systolic 78–113; BP diastolic 44–67; PULSE 55–145; RESP 13–31; TEMP 36.4–36.6; O2SAT 77–97
[2019-12-01 16:25] LABS: BE (Venous) 1.8 mmol/L (-3-3); HCO3 (Venous) 27 mmol/L (22-28); O2 Sat (Venous) 69 % (70-80); TCO2 (Venous) 26 mmol/L (22-29); pCO2 (Venous) 47 mm/Hg (34-47); pH (Venous) 7.37 (7.35-7.45); pO2 (Venous) 38 mm/Hg (28-44)
[2019-12-01 16:26] LABS: Lactate 1.3 mmol/L (0.6-1.4)
--- NOTE | 2019-12-01 16:28 | W.ED.GENAD ---
Discharge Plan Disposition Patient Disposition: HOME Condition: Stable Discharge Details Chief Complaint: Nausea/Vomit/Diar Clinical Impression: Diarrhea, Hypomagnesemia Primary Care Provider: Pineda Yap ED Provider: Alessandro Downing Home Meds and New Rx's Prescriptions: Continued (DME) FreeStyle Test 1 EACH strip 1 ea Miscellaneous DIRECTED RF: 0 No Action metformin 1,000 mg tablet extended release 24hr 1,000 mg PO DAILY RF: 0 duloxetine 30 MG capsule,delayed release(DR/EC) 30 mg PO DAILY RF: 0 Lantus U-100 Insulin 100 unit/mL solution 15 unit subcut HS RF: 0 losartan [Cozaar] 50 mg Tablet 50 mg PO DAILY RF: 0 atorvastatin [Lipitor] 40 mg Tablet 40 mg PO DAILY RF: 0 acetaminophen [Tylenol] 325 mg Tablet 650 mg PO Q6H PRN PRNRF: 0 amiodarone 200 mg Tablet 200 mg PO DAILY RF: 0 metoprolol succinate 50 mg Tablet Extended Release 24 Hr 50 mg PO DAILY RF: 0 folic acid 1 mg Tablet 1 mg PO DAILY RF: 0 insulin lispro [Humalog U-100 Insulin] 100 unit/mL Solution 1 - 6 sliding scale dose subcut DIRECTED RF: 0 hydrochlorothiazide 12.5 mg Tablet 12.5 mg PO DAILY RF: 0 Eliquis 5 mg Tablet 5 mg PO BID RF: 0 cholecalciferol (vitamin D3) [Vitamin D3] 2,000 unit Capsule 2,000 unit PO HS RF: 0 Discharge Instructions Instructions: Acute Diarrhea (ED), Hypomagnesemia (ED) Additional Instructions: follow up with your primary care provider within 1 week and have your magnesium level rechecked. If you have severe abdominal pain, persistent vomit, fever over 100.4 or feel more ill return to the emergency department Medical Decision Making 68 yo female with hx of morbid obesity, htn, hld, DM, maria fernanda, afib, and metastatic pancreatitc cancer comes in from home with diarrhea and feeling dehydrated. She denies any fevers, abdominal pain, travel, vomit or nauesa, just having diarrhea. She denies bloody or dark stools. She was tx'd with antibiotics last month for possible pna. She Has no abdominal tenderness on exam. I suspect possible infectious gastroenteritis and given recent abx exposure will check for c diff. She does seem dehydrated on exam with soft bp's and in afib with rates of 110-130, no chest pain or increased shortness of breath.Will give ivf, check for electrolyte abnormalities and reassess. pt feeling much better after 1 L of IVF. Labs show mag of 0.9 and anc of 0.74. Awaiting stool sample. [place] [facility] [place] who did not feel she required presumptive tx for infectious gastroenteritis if c diff negative especially without fevers, did not have any further recs and if patient was stable and feeling well otherwise can be d/c'd. pt feels much better, Bp now 101/60 and HR 60. Still has not been able to provide stool sample so will d/c with collection kit to return to lab. Has fu appt , return precautions given Differential Diagnosis Differential Diagnosis: c diff, gastroenteritis, food illness Medical Records Medical records reviewed: Yes I reviewed the patient's medical records. Lab Data Lab results reviewed: Yes I reviewed the patient's lab results. ECG Data Attestation: I personally reviewed and interpreted this ECG (s) as follows: Prior ECG tracings: not available for review Interpretation: afib, rate of 120, qtc 483, HPI General Mode of arrival: EMS. Date/Time Provider Initiated Documentation: 12/01/19 16:01. Limitations to Documentation: no limitations. Information obtained by: patient. History of Present Illness 68 year old F presents to the emergency department with the chief complaint of diarrhea, described as moderate, and it has been constant. No relieving factors improve symptom(s), No exacerbating factors reported . Patient notes other (dehydration). Patient did receive the following treatments prior to arrival, none Related Data Home Medications Medication Instructions Recorded Confirmed FreeStyle Test strip 01/07/15 08/15/19 duloxetine 30 mg PO DAILY 01/07/15 12/01/19 insulin glargine 100 unit/mL 15 unit SUBCUT HS ml 08/15/19 12/01/19 subcutaneous solution metformin 1,000 mg tablet,extended 1,000 mg PO DAILY 08/15/19 12/01/19 release 24hr cholecalciferol (vitamin D3) 2,000 unit PO HS 09/24/19 12/01/19 [Vitamin D3] acetaminophen [Tylenol] 650 mg PO Q6H PRN PRN 12/01/19 12/01/19 amiodarone 200 mg PO DAILY 12/01/19 12/01/19 apixaban [Eliquis] 5 mg PO BID 12/01/19 12/01/19 atorvastatin [Lipitor] 40 mg PO DAILY 12/01/19 12/01/19 folic acid 1 mg PO DAILY 12/01/19 12/01/19 hydrochlorothiazide 12.5 mg PO DAILY 12/01/19 12/01/19 insulin lispro [Humalog U-100 1 - 6 sliding scale dose SUBCUT 12/01/19 12/01/19 Insulin] DIRECTED losartan [Cozaar] 50 mg PO DAILY 12/01/19 12/01/19 metoprolol succinate 50 mg PO DAILY 12/01/19 12/01/19 Allergies Allergy/AdvReac Type Severity Reaction Status Date / Time No Known Allergies Allergy Unverified 12/01/19 18:18 General Stated Complaint: Nausea/Vomit/Diar EMILY: 3 Review of Systems All systems reviewed & are unremarkable except as noted in HPI and below Constitutional Constitutional: Denies chills, Denies fever(s) and Denies weakness Cardiovascular Cardiovascular: Denies chest pain and Denies dyspnea Respiratory Respiratory: Denies cough and Denies dyspnea Gastrointestinal Gastrointestinal: Denies abdominal pain, Denies nausea and Denies vomiting Musculoskeletal Musculoskeletal: Denies joint swelling Neurologic Neurologic: Denies weakness [facility] Social History (Updated 11/20/19 @ 09:56 by Tessa Ohara RN) Smoking/Tobacco Use Status: Never Alcohol Intake: never Drug use: Never Substance use type: does not use Household members: spouse current occupation: retired Do you feel safe at home: Yes Do you feel safe in your relationship?: Yes Exam Const General: no acute distress Orientation: alert HENMT Head: normal to inspection Ears: external ears normal General nose exam: external nose normal Mouth: moist mucous membranes Eyes General: appearance normal, both eyes and all related structures Neck Neck: normal visual inspection Resp Effort & Inspection: normal respiratory effort and able to speak in complete sentences Cardio Rate: regular rate GI Palpation: soft Skin General skin exam: no rashes or lesions noted Neuro General: alert and oriented x3 Extrem General: normal to inspection Psych Mental Status: mental status grossly normal Course Vital Signs Vital signs: Vital Signs Temperature 36.4 C L 12/01/19 16:03 Respiratory Rate 12/01/19 16:03 Blood Pressure 78/63 L 12/01/19 16:03 Temperature 36.4 C L 12/01/19 16:03 Temperature Source Temporal Artery Scan 12/01/19 16:03 Respiratory Rate 20 12/01/19 16:03 Blood Pressure 78/63 L 12/01/19 16:03 Blood Pressure Position Supine 12/01/19 16:03 Lab/Test Results Lab/Test Results: Laboratory Tests Range/Units 12/01/19 12/01/19 16:15 16:15 VBG pH (7.35-7.45) 7.37 VBG pCO2 (34-47) mm/Hg 47 VBG pO2 (28-44) mm/Hg 38 VBG HCO3 (22-28) mmol/L 27 VBG Total CO2 (22-29) mmol/L 26 VBG O2 Saturation (70-80) % 69 L VBG Base Excess (-3-3) mmol/L 1.8 Lactate (0.6-1.4) mmol/L 1.3
[2019-12-01 16:29] LABS: Abs Immature Grans 0.02 k/cumm (0.0-0.09); HCT 25.1 % (36.0-46.0); Mean Corp. HGB Concentration 31.9 g/dL (32.0-36.0); Mean Platelet Volume 10.5 fL (8.0-11.0); RBC 2.67 m/cumm (4.00-5.20); RBC Distribution Width 17.1 % (11.7-14.6)
[2019-12-01] MEDS: Normal Saline 1,000 ML 1000 ML IV ×2 (16:35→17:38)
[2019-12-01] MEDS: Ondansetron 4 MG/2 ML VIAL IVP (16:36)
[2019-12-01 16:37] LABS: Lipase 41 U/L (73-393); Magnesium 0.9 mg/dL (1.8-2.4)
[2019-12-01 16:42] LABS: INR 1.4 (0.9-1.1); PTT Activated 36.8 sec (21.0-31.4); Prothrombin Time 14.3 sec (9.3-11.0)
[2019-12-01 16:43] LABS: ALT 24 U/L (14-59); AST 36 U/L (15-37); Albumin 1.1 g/dL (3.4-5.0); Alkaline Phosphatase 149 U/L (46-116); Anion Gap 10.6 mmol/L (3-11); BUN 38 mg/dL (7-18); Bilirubin, Total 0.6 mg/dL (0.2-1.0); CO2 27.4 mmol/L (21.0-32.0); CREATININE 2.27 mg/dL (0.55-1.02); Chloride 100 mmol/L (98-107); Estimated GFR 21.54 (mL/min/1.73m2); Glucose 104 mg/dL (74-106); Potassium 3.5 mmol/L (3.5-5.1); Sodium 138 mmol/L (136-145); Total Protein 5.6 g/dL (6.4-8.2)
[2019-12-01 16:49] LABS: White Blood Cell Count 0.89 k/cumm (4.4-10.8)
[2019-12-01 16:50] LABS: Absolute Lymphocyte Count 0.14 k/cumm (1.2-3.4); Platelet Count 68 x1000/uL (130-400)
[2019-12-01 16:51] LABS: Absolute Neutrophil Count 0.74 k/cumm (1.2-6.7); Anisocytosis 2+; Diff Comment Manual Differential
[2019-12-01] MEDS: Acetaminophen 500 MG TAB 1000 MG PO (16:51)
[2019-12-01] MEDS: MAGNESIUM SULFATE 2 GM/50 ML BAG IVPB (16:55)
--- NOTE | 2019-12-01 18:35 | NUR.NOTE ---
pt med list updated via verification from pt portal. Nursing Note:
--- NOTE | 2019-12-01 19:11 | NUR.NOTE ---
Nursing Note: Pt states she needs to have a BM. Placed on bedpan, call light at side.
--- NOTE | 2019-12-01 19:34 | NUR.NOTE ---
Nursing Note: Stool specimen collected and sent to lab. [place] care provided. Depends in place.
--- NOTE | 2019-12-01 19:44 | NUR.NOTE ---
Holly Hernández in to access [facility] port. MD Reeder in to eval pt. plan for admission.
--- NOTE | 2019-12-01 19:46 | W.PM.HP.N ---
Date of service: 12/01/19 Time of Service: 19:46 Assessment and Plan Assessment and plan (1) Diarrhea: Status: Acute Assessment and plan: Diarrhea. Viral gastroenteritis most likely, but will check stool studies for C diff and bacterial pathogens. Supportive measures in meantime with hydration. 1. Diarrhea: IVF, await stool studies 2. Hypomagnesemia: recheck AM 3. DM: hold insulin and metformin, cover with SS 4. AF: continue Amiodarone and beta trudy 5. HTN: hold BP meds. Reviewed advance directives, requests DNR History of Present Illness History of Present Illness Chief Complaint: diarrhea Narrative: 68 female with h/o metastatic pancreatic cancer, here with 4-5 days of diarrhea, loose to wateery. No abdominal pain, nausea or vomiting. Denies recent antibiotic use, though ER note references treatment for possible pneumonia last month (patient specifically denies this). No travel, or similar illness at home. Family on drilled well. In ER initially hypotensive with rapid AF, and hypomagnesemia. Has received 2 L IVF and 2 g MgSO4. Feels substantially improved but remains too weak to go home. Admitted further management. Note ANC 740, without fever. Case reviewed with oncology who advised against empiric antibiotics in absence of fever or documented bacterial pathogen. 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) Obesity (Chronic 02/11/15) Obstructive sleep apnea (Chronic) Primary pancreatic cancer with metastasis to other site (Acute) Tubular adenoma of colon (Acute) Surgical History section X 2 Cholecystectomy S/P appendectomy (Acute) S/P hysterectomy (Acute) S/P laparotomy (Acute) Social History Smoking/Tobacco Use Status: Never Alcohol Intake: never Drug use: Never Substance use type: does not use Household members: spouse current occupation: retired Do you feel safe at home: Yes Do you feel safe in your relationship?: Yes Meds Home Medications and Allergies Home Medications Medication Instructions Recorded Confirmed Type Mike Test strip 01/07/15 08/15/19 History duloxetine 30 mg PO DAILY 01/07/15 12/01/19 History insulin glargine 100 unit/mL 15 unit SUBCUT HS ml 08/15/19 12/01/19 History subcutaneous solution metformin 1,000 mg tablet,extended 1,000 mg PO DAILY 08/15/19 12/01/19 History release 24hr cholecalciferol (vitamin D3) 2,000 unit PO HS 09/24/19 12/01/19 History [Vitamin D3] acetaminophen [Tylenol] 650 mg PO Q6H PRN PRN 12/01/19 12/01/19 History amiodarone 200 mg PO DAILY 12/01/19 12/01/19 History apixaban [Eliquis] 5 mg PO BID 12/01/19 12/01/19 History atorvastatin [Lipitor] 40 mg PO DAILY 12/01/19 12/01/19 History folic acid 1 mg PO DAILY 12/01/19 12/01/19 History hydrochlorothiazide 12.5 mg PO DAILY 12/01/19 12/01/19 History insulin lispro [Humalog U-100 1 - 6 sliding scale dose SUBCUT 12/01/19 12/01/19 History Insulin] DIRECTED losartan [Cozaar] 50 mg PO DAILY 12/01/19 12/01/19 History metoprolol succinate 50 mg PO DAILY 12/01/19 12/01/19 History Allergies Allergy/AdvReac Type Severity Reaction Status Date / Time No Known Allergies Allergy Unverified 12/01/19 18:18 Exam Narrative Exam Narrative: 97/52 (during my visit 113/systolic), 72, 20, 36.4. HEENT dry oral mucosa; neck supple; lungs clear; heart RRR; abdomen soft and NT; pelvic/rectal deferred; extremities trace pedal edema; neuro Ox3, moves all 4s. Results Labs Result diagrams: 12/01/19 16:15 12/01/19 16:15 Labs: Laboratory Results - last 24 hr 12/01/19 12/01/19 12/01/19 16:15 16:15 16:15 WBC 0.89 L* RBC 2.67 L Hgb 8.0 L Hct 25.1 L MCV 94.0 MCH 30.0 MCHC 31.9 L RDW 17.1 H Plt Count 68 L MPV 10.5 Immature Gran % 0.0 Neutrophils % 84.0 Lymphocytes % 16.0 Monocytes % 0.0 Eosinophils % 0.0 Basophils % 0.0 Absolute Neutrophils 0.74 L Absolute Lymphocytes 0.14 L Absolute Monocytes 0.00 L Absolute Eosinophils 0.00 Absolute Basophils 0.00 Differential Comment Manual differential RBC Morphology See below Anisocytosis 2+ PT INR APTT VBG pH VBG pCO2 VBG pO2 VBG HCO3 VBG Total CO2 VBG O2 Saturation VBG Base Excess Sodium Potassium Chloride Carbon Dioxide Anion Gap BUN Creatinine Estimated GFR/1.73 m2 Glucose Lactate 1.3 Calcium Magnesium 0.9 L Total Bilirubin AST ALT Alkaline Phosphatase Total Protein Albumin Lipase 41 Stool Campylobacter PCR Stool Salmonella PCR Stool Shigella PCR Shiga Toxin (PCR) 12/01/19 12/01/19 12/01/19 16:15 16:15 16:15 WBC RBC Hgb Hct MCV MCH MCHC RDW Plt Count MPV Immature Gran % Neutrophils % Lymphocytes % Monocytes % Eosinophils % Basophils % Absolute Neutrophils Absolute Lymphocytes Absolute Monocytes Absolute Eosinophils Absolute Basophils Differential Comment RBC Morphology Anisocytosis PT 14.3 H INR 1.4 H APTT 36.8 H VBG pH 7.37 VBG pCO2 47 VBG pO2 38 VBG HCO3 27 VBG Total CO2 26 VBG O2 Saturation 69 L VBG Base Excess 1.8 Sodium 138 Potassium 3.5 Chloride 100 Carbon Dioxide 27.4 Anion Gap 10.6 BUN 38 H Creatinine 2.27 H Estimated GFR/1.73 m2 21.54 Glucose 104 Lactate Calcium 7.0 L Magnesium Total Bilirubin 0.6 AST 36 ALT 24 Alkaline Phosphatase 149 H Total Protein 5.6 L Albumin 1.1 L Lipase Stool Campylobacter PCR Stool Salmonella PCR Stool Shigella PCR Shiga Toxin (PCR) 12/01/19 17:10 WBC RBC Hgb Hct MCV MCH MCHC RDW Plt Count MPV Immature Gran % Neutrophils % Lymphocytes % Monocytes % Eosinophils % Basophils % Absolute Neutrophils Absolute Lymphocytes Absolute Monocytes Absolute Eosinophils Absolute Basophils Differential Comment RBC Morphology Anisocytosis PT INR APTT VBG pH VBG pCO2 VBG pO2 VBG HCO3 VBG Total CO2 VBG O2 Saturation VBG Base Excess Sodium Potassium Chloride Carbon Dioxide Anion Gap BUN Creatinine Estimated GFR/1.73 m2 Glucose Lactate Calcium Magnesium Total Bilirubin AST ALT Alkaline Phosphatase Total Protein Albumin Lipase Stool Campylobacter PCR Cancelled Stool Salmonella PCR Cancelled Stool Shigella PCR Cancelled Shiga Toxin (PCR) Cancelled Last Vital Signs Temp 36.4 C L 12/01/19 16:03 Pulse 72 12/01/19 18:00 Resp 16 12/01/19 18:01 BP 97/52 L 12/01/19 18:00 Pulse Ox 77 L 12/01/19 16:06
--- NOTE | 2019-12-01 20:04 | NUR.NOTE ---
Pt reports 4/10 abd discomfort. has had 3 chemo treatments, [place] [facility] [place] was [place] 11/28
--- NOTE | 2019-12-01 20:28 | NUR.NOTE ---
SBP 89. MD Downing aware. pt denies dizziness lying flat, states when she tried to sit up felt dizzy. 1L NS bolus up.
[2019-12-02] VITALS (13 sets, daily range): BP systolic 84–125; BP diastolic 44–71; PULSE 55–80; RESP 18–22; TEMP 35.2–36.9; O2SAT 96–100
[2019-12-02] MEDS: POTASSIUM CHLORIDE/0.9% NACL 1,000 ML 100 MEQ IV (00:31)
[2019-12-02] MEDS: Dextrose 50%-Water 25 GM/50 ML SYR IVP ×2 (00:55→02:22)
[2019-12-02 01:10] LABS: Glucose 141 mg/dL (74-106)
[2019-12-02] MEDS: Normal Saline Flush 10 ML SYR IVP ×4 (01:14→21:33)
[2019-12-02] MEDS: Normal Saline 500 ML IV (01:40)
[2019-12-02] MEDS: POTASSIUM CHLORIDE/D5-0.9%NACL 1,000 ML 150 MEQ IV ×2 (02:47→09:43)
[2019-12-02 07:16] LABS: Abs Immature Grans 0.05 k/cumm (0.0-0.09); Absolute Lymphocyte Count 0.05 k/cumm (1.2-3.4); HCT 23.2 % (36.0-46.0); HGB 7.3 g/dL (12.0-15.5); Mean Corp. HGB Concentration 31.5 g/dL (32.0-36.0); Mean Corpuscular Volume 95.5 fL (80-95); Mean Platelet Volume 10.2 fL (8.0-11.0); RBC 2.43 m/cumm (4.00-5.20); RBC Distribution Width 17.4 % (11.7-14.6)
[2019-12-02] MEDS: Amiodarone 200 MG TAB PO (07:46)
[2019-12-02] MEDS: Folic Acid 1 MG TAB PO (07:46)
[2019-12-02] MEDS: DULoxetine 30 MG CAP PO (07:46)
[2019-12-02 07:53] LABS: Anion Gap 9.8 mmol/L (3-11); BUN 37 mg/dL (7-18); CO2 25.2 mmol/L (21.0-32.0); CREATININE 2.22 mg/dL (0.55-1.02); Calcium 6.5 mg/dL (8.5-10.1); Chloride 105 mmol/L (98-107); Glucose 119 mg/dL (74-106); Magnesium 1.1 mg/dL (1.8-2.4); Potassium 3.3 mmol/L (3.5-5.1); Sodium 140 mmol/L (136-145)
[2019-12-02 08:26] LABS: Absolute Eosinophil Count 0.01 k/cumm (0.0-0.7); Absolute Monocyte Count 0.02 k/cumm (0.11-0.7); Platelet Count 59 x1000/uL (130-400)
[2019-12-02 08:27] LABS: Nucleated RBC 1 /100WBC
[2019-12-02 08:28] LABS: Anisocytosis 2+; Hypochromasia 2+; Polychromasia Present
[2019-12-02 08:29] LABS: Poikilocytes 2+
[2019-12-02 08:30] LABS: White Blood Cell Count 0.28 k/cumm (4.4-10.8)
[2019-12-02 08:31] LABS: Diff Comment Manual Differential
[2019-12-02 08:32] LABS: Absolute Neutrophil Count 0.21 k/cumm (1.2-6.7)
--- NOTE | 2019-12-02 10:30 | DI.RAD_ITS ---
EXAM: XR PORTABLE CHEST AP CLINICAL HISTORY: dyspnea, oxygen requirement TECHNIQUE: COMPARISON: XR PORTABLE CHEST AP from 10/20/2019 FINDINGS: Portable AP chest at 1015 hours. Right Port-A-Cath again noted. Left pleural effusion again noted a s on October 20 film. Right pleural effusion again seen, this was present on CT of the chest on . Mild bilateral diffuse intrapulmonary interstitial infiltrates are noted, most prominent in the lung bases, consistent with CHF. IMPRESSION: Findings suggesting moderate CHF. Bilateral pleural effusions. Superimposed infectious process not excluded on this examination.
--- NOTE | 2019-12-02 10:38 | DI.VRAD_ITS ---
PROCEDURE INFORMATION: Exam: XR Chest, 1 View Exam date and time: 12/02/2019 10:20 AM Age: 68 years old Clinical indication: Other: Dus(lizbet, oxygen requirement TECHNIQUE: Imaging protocol: XR of the chest Views: 1 view. COMPARISON: XR PORTABLE CHEST AP 10/20/2019 7:38 AM FINDINGS: Tubes, catheters and devices: Accessed right chest port with distal catheter tip at the superior cavoatrial junction. Cardiac monitoring leads overlie the patient. Lungs: Persistent interstitial opacities. Lower lung opacities. Indistinct pulmonary vasculature. Pleural space: Large left and moderate right pleural effusion. No pneumothorax. Heart/Mediastinum: Unchanged enlarged cardiomediastinal silhouette. Bones/joints: Mild multilevel thoracolumbar spondylosis. IMPRESSION: Persistent large left pleural effusion, new right layering pleural effusion. Interstitial opacities and lower lung opacities along with parahilar fullness pulmonary vascular indistinctness. Enlarged cardiomediastinal silhouette. Constellation of findings most compatible with decompensated cardiogenic pulmonary edema. Cannot entirely exclude underlying infectious process in the proper clinical setting. Dictated and Authenticated by: Pineda Santos MD. Ordering:LISA Alvarado MD
--- NOTE | 2019-12-02 10:53 | PDOC.CMIN ---
- If Service Date Differs Date of service: 12/02/19 Time of Service: 10:53 Care Management Initial Assess REASON FOR HOSPITALIZATION:: Diarrhea PAST MEDICAL HISTORY/PAST SURGICAL HISTORY:: Medical History . CAD (coronary artery disease) (Chronic). Diabetic neuropathy (Chronic). Hyperlipidemia (Chronic). Hypertension (Chronic). 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 Obesity (Chronic 02/11/15). Obstructive sleep apnea (Chronic). Primary pancreatic cancer with metastasis to other site (Acute). Tubular adenoma of colon (Acute). Surgical History . section. X 2. Cholecystectomy. S/P appendectomy (Acute). S/P hysterectomy (Acute). S/P laparotomy (Acute) PREVIOUS FUNCTIONAL STATUS/SOCIAL/FAMILY SUPPORTS:: Faviola lives in [place] with her , Aric. They have two adult daughters, one who lives in [place] and one who lives in [place]. They both have visited recently, since she was diagnosed with metastatic pancreatic cancer. Her supports her with ADL's, but she was previously independent. CURRENT FUNCTIONAL STATUS:: Faviola was sitting up in her bed when CM met with her. She reported not feeling well at all, and being very uncomfortable. She was having difficulty engaging in conversation, likely due to pain. She reported that she would be meeting with Palliative on Wednesday, if available, and stated that her would like to be at the meeting. CM will continue to follow. ADVANCE DIRECTIVES:: None on file. Has patient been provided with information about the portal?: No Did the patient sign up for the portal?: No CODE STATUS:: DNR/DNI INSURANCE COVERAGE / FINANCIAL ISSUES:: [facility]/ [place]/ [facility] CURRENT HOME/COMMUNITY SERVICES/EQUIPMENT:: Faviola currently does not have any community services or equipment. PRIMARY CARE PHYSICIAN:: Pineda Yap POTENTIAL DISCHARGE NEEDS:: Evaluations for further needs, follow up appointments PATIENT/FAMILY EDUCATION NEEDS:: Review discharge instructions regarding medications and activity, discussion of self care needs including Ask Me Three ANTICIPATED BARRIERS TO DISCHARGE:: None identified at this time. TRANSPORTATION:: Anticipate Faviola's will drive her home via private vehicle. PLAN:: Anticpate Faviola will return home when medically cleared. Palliative has been consulted, and will meet with her here vs outpatient. Her would like to be present at the Palliative meeting. Her will drive her home via private vehicle. She will follow up with her PCP and specialists, as recommended. CM will continue to follow and support discharge planning considerations.
[2019-12-02] MEDS: levoFLOXacin 750 MG/150 ML BAG 100 MG IVPB (10:56)
--- NOTE | 2019-12-02 11:32 | PHARADMIT ---
Addendum entered by Walt Steiner III 12/06/19 12:17: Pharmacy Note Subjective Pancreatic canmer with Metastasis, here for STORE SALES LEADER Objective No VS, No Pain scale, No Labs Assessment Morphine Infusion Plan End of life care. Addendum entered by Galilea Mahajan 12/05/19 17:29: Pharmacy Note Subjective IV morphine x3 overnight Objective Pain: 8/10 this AM Assessment STORE SALES LEADER, ponaris sent up Plan IV Morphine drip started today at 1mg/hr - pt is comfortable Surg held off on paracentesis today as pain is controlled and platelet count is very low Addendum entered by Jocelyn Ware 12/04/19 16:17: Pharmacy Note Subjective pt waiting for children to get her before stopping IV dextrose per morning report Objective pain 7/10 Assessment palliative care meds ordered dextrose orders discontinued ponaris nasal emollient ordered for tomorrow should pt still need it Plan STORE SALES LEADER. pt would like to here Original Note: Admission Pharmacy Clinical Review diarrhea Code Status DNR/DNI Current Weight 104.1 kg Renally Cleared and Narrow Therapeutic Index Meds crcl ~22ml/min will ask about changing frequency of levofloxacin Iv from Q24H to Q48H QTc Value / Action Taken QTc 483 MDA aware pt is on levofloxacin, amiodarone. Md ordered tele BP Control, Fever 112/58 afebile Electrolytes reviewed ok DVT Prophylaxis apixaban Opiate Usage / Scheduled Bowel Regimen Ordered no/no(diarrhea) Plt/SCr for Heparin / Enoxaparin 59/2.22 INR for Warfarin 1.4 H/H stable, WBC/Bands 7.3/23.5 Antibiotic appropriateness levofloxacin for chemo induced neutropenia Cultures and Sensitivities cdiff - Surgical ABX d/c within 24 hr na DM control / Insulin Dosing Fs 122, on insulin aspart SS as inpt Heart Failure (Check EF%) (LUISA's, B-Block, Diuretics) na IV to PO Switch Home Meds Reviewed Home Meds Not Ordered insulin glargine 100 unit/mL subcutaneous solution 15 unit SUBCUT HS metformin 1,000 mg tablet,extended release 24hr 1,000 mg PO DAILY cholecalciferol (vitamin D3) [Vitamin D3] 2,000 unit PO HS atorvastatin [Lipitor] 40 mg PO DAILY hydrochlorothiazide 12.5 mg PO DAILY insulin lispro [Humalog U-100 Insulin] 1 - 6 sliding scale dose SUBCUT DIRECTED losartan [Cozaar] 50 mg PO DAILY Comments
[2019-12-02] MEDS: Pantoprazole 40 MG VIAL IVP ×2 (11:53→21:33)
[2019-12-02 12:29] LABS: HCT 23.6 % (36.0-46.0); HGB 7.5 g/dL (12.0-15.5)
[2019-12-02] MEDS: MAGNESIUM SULFATE 4 GM/100 ML BAG IVPB (12:58)
[2019-12-02] MEDS: POTASSIUM CHLORIDE 20 MEQ/100 ML BAG 50 MEQ IVPB ×2 (12:59→16:53)
--- NOTE | 2019-12-02 14:55 | W.PM.PROGNOT ---
Date of Service Date of service: 12/02/19 Time of Service: 14:55 Assessment and Plan Assessment and plan (1) Pancytopenia: Status: Acute Assessment and plan: Likely a combination of effects of gemcitabine and abraxane as well as her chronic anemia. Given degree of neutropenia, will give neupogen - Discussed with Dr Velasquez. Started on prophylactic levofloxacin. Septic workup pending. Continue neutropenic precautions. Avoid chemical DVT ppx and hold anticoagulation. (2) Diarrhea: Status: Acute Assessment and plan: likely side effect of chemo. C. DIff negative. Await remainder of stool studies. Patient cannot tolerate IV hydration. Provide prn loperamide. (3) Hypothermia: Status: Acute Assessment and plan: ?sign of infection. Doubt adrenal insufficiency - does not usually occur with this chemo regimen, and patient has not recently been on steroids. For now, on prophylactic levofloxacin. Await septic workup. Rule out hypothyroidism - she is on amiodarone. (4) Hypomagnesemia: Status: Acute Assessment and plan: Replete and recheck in am. MOnitor on tele. (5) Primary pancreatic cancer with metastasis to other site: Status: Chronic Assessment and plan: Consult palliative care/hospice. Patient is aware that her cancer is not curable and is in agreement with the consults. (6) Heme + stool: Status: Acute Assessment and plan: No evidence of massive bleeding. Apixaban placed on hold. Placed on IV PPI. H/H stable so far today - will recheck in am. (7) Atrial fibrillation: Status: Chronic Assessment and plan: Rate controlled. Monitor on tele. Continue amiodarone. Rule out hypothyroidism. Hold eliquis given heme + stools/anemia (8) Pulmonary edema: Status: Acute Assessment and plan: given borderline BP's, would like to offer a 1 time dose of 20 mg of IV lasix. (9) Ascites: Status: Acute Assessment and plan: May benefit from being initiated on aldactone/lasix rather than HCTZ as outpatient. Expected [place] [facility] [place] - will monitor volume status for now and diurese as tolerated. (10) Obstructive sleep apnea: Status: Chronic Assessment and plan: Refuses CPAP offered to her. Monitor O2 sats and provide supplemental O2 prn. (11) Insulin dependent type 2 diabetes mellitus: Status: Chronic Assessment and plan: Hold long acting insulin today given hypoglycemia. (12) DVT prophylaxis: Status: Acute Assessment and plan: Chemical DVT ppx contraindicated in setting of bleeding. Offer TEDs/SCD's. (13) Discharge planning issues: Status: Acute Assessment and plan: DNR/DNI Palliative care and hospice consulted Subjective Subjective Interval history since last seen: Ms Rice states that her diarrhea is slowing down. She has been having periods of abdominal cramping today diffusely. States she is short of breath - primarily with movement and positionally, because her abdomen is making it hard to breathe. She has known ascites has had to get regular paracenthesis treatments. She is already scheduled [place] [facility] [place] No dizziness, chest pain, shortness of breath, cough. Her stools have been orange and have tested Heme +. Her hemoglobin is stable today. She consents to getting a blood transfusion if needed and has had transfusions in the past. She has had hemorrhoids in the past. Feels really cold, has a sore throat, mouth feels dry, and it hurts to swallow. She also had epistaxis today from O2. She has refused to use CPAP. Hypoglycemic x 2 overnight (30's at midnight, 60 at 2 am); she has been in low 100's most of the day so far. Has only had a little bit of PO intake. Hypothermic (last temp 35.2). No fevers. Hypotensive overnight to 84/44 - 104/68 on latest recheck. Case discussed with [facility] [place] Dr Velasquez recommends trialing neupogen 480 mcg daily until neutropenic resolves. Per Dr Velasquez, her current chemotherapy regimen of gemcitabine and abraxane is not known to cause adrenal insufficiency. Exam Narrative Exam Narrative: General: Pleasant pale obese female, appears to be shivering/visibly cold, A&Ox3, mildly dyspneic at a 30 degree angle HEENT: EOMI, dry MM - I am not appreciating sores/thrush, but the patient's oral mucosa is red from a popsicle Heart: RRR, no m/r/g Lungs: Diminished breath sounds B Abdomen: ascites but not tense, soft, diffusely tender Extremities: 1+ BLE edema, 1+ pedal pulses B, no c/c. Objective Objective Clinical Data: Abnormal lab results 01/17/20 01/17/20 01/17/20 Range/Units 16:15 16:15 16:15 WBC 0.89 L* (4.4-10.8) k/cumm RBC 2.67 L (4.00-5.20) m/cumm Hgb 8.0 L (12.0-15.5) g/dL Hct 25.1 L (36.0-46.0) % MCV (80-95) fL MCHC 31.9 L (32.0-36.0) g/dL RDW 17.1 H (11.7-14.6) % Plt Count 68 L (130-400) x1000/uL Absolute Neutrophils 0.74 L (1.2-6.7) k/cumm Absolute Lymphocytes 0.14 L (1.2-3.4) k/cumm Absolute Monocytes 0.00 L (0.11-0.7) k/cumm PT 14.3 H (9.3-11.0) sec INR 1.4 H (0.9-1.1) APTT 36.8 H (21.0-31.4) sec VBG O2 Saturation (70-80) % Potassium (3.5-5.1) mmol/L BUN (7-18) mg/dL Creatinine (0.55-1.02) mg/dL Glucose (74-106) mg/dL Calcium (8.5-10.1) mg/dL Magnesium 0.9 L (1.8-2.4) mg/dL Alkaline Phosphatase (46-116) U/L Total Protein (6.4-8.2) g/dL Albumin (3.4-5.0) g/dL 12/01/19 12/01/19 12/02/19 Range/Units 16:15 16:15 01:00 WBC (4.4-10.8) k/cumm RBC (4.00-5.20) m/cumm Hgb (12.0-15.5) g/dL Hct (36.0-46.0) % MCV (80-95) fL MCHC (32.0-36.0) g/dL RDW (11.7-14.6) % Plt Count (130-400) x1000/uL Absolute Neutrophils (1.2-6.7) k/cumm Absolute Lymphocytes (1.2-3.4) k/cumm Absolute Monocytes (0.11-0.7) k/cumm PT (9.3-11.0) sec INR (0.9-1.1) APTT (21.0-31.4) sec VBG O2 Saturation 69 L (70-80) % Potassium (3.5-5.1) mmol/L BUN 38 H (7-18) mg/dL Creatinine 2.27 H (0.55-1.02) mg/dL Glucose 141 H (74-106) mg/dL Calcium 7.0 L (8.5-10.1) mg/dL Magnesium (1.8-2.4) mg/dL Alkaline Phosphatase 149 H (46-116) U/L Total Protein 5.6 L (6.4-8.2) g/dL Albumin 1.1 L (3.4-5.0) g/dL 12/02/19 12/02/19 12/02/19 Range/Units 06:43 06:43 12:05 WBC 0.28 L* D (4.4-10.8) k/cumm RBC 2.43 L (4.00-5.20) m/cumm Hgb 7.3 L 7.5 L (12.0-15.5) g/dL Hct 23.2 L 23.6 L (36.0-46.0) % MCV 95.5 H (80-95) fL MCHC 31.5 L (32.0-36.0) g/dL RDW 17.4 H (11.7-14.6) % Plt Count 59 L (130-400) x1000/uL Absolute Neutrophils 0.21 L* (1.2-6.7) k/cumm Absolute Lymphocytes 0.05 L (1.2-3.4) k/cumm Absolute Monocytes 0.02 L (0.11-0.7) k/cumm PT (9.3-11.0) sec INR (0.9-1.1) APTT (21.0-31.4) sec VBG O2 Saturation (70-80) % Potassium 3.3 L (3.5-5.1) mmol/L BUN 37 H (7-18) mg/dL Creatinine 2.22 H (0.55-1.02) mg/dL Glucose 119 H (74-106) mg/dL Calcium 6.5 L (8.5-10.1) mg/dL Magnesium 1.1 L (1.8-2.4) mg/dL Alkaline Phosphatase (46-116) U/L Total Protein (6.4-8.2) g/dL Albumin (3.4-5.0) g/dL Vital Signs Temperature 35.2 C L 12/02/19 13:35 Temperature Source Tympanic 12/02/19 13:35 Pulse 55 L 12/02/19 13:35 Pulse Rhythm Irregular 12/02/19 13:35 Pulse 72 12/01/19 18:01 Respiratory Rate 22 12/02/19 13:35 Respiratory Effort Non-Labored 12/02/19 13:35 Respiratory Depth Normal 12/02/19 13:35 Respiratory Pattern Normal 12/02/19 13:35 Blood Pressure 104/68 12/02/19 13:35 Blood Pressure Mean 63 12/01/19 18:00 Blood Pressure Position Supine 12/01/19 16:03 Pulse Oximetry 96 12/02/19 13:35 Oxygen Delivery Method Nasal Cannula 12/02/19 13:35 Oxygen Flow Rate 2 12/02/19 13:35 Pain Level 0 12/02/19 13:35 Comment 12/02/19 13:35 Intake & Output 12/01/19 12/02/19 12/02/19 23:59 11:59 23:59 Intake Total 2079 2168.333 / 2168.333 Balance 2079 2168.333 / 2168.333 Weight 104.1 kg 104.1 kg Intake: IV 2079 1868.333 / 1868.333 Oral 300 / 300 Other: Urine Color Yellow Urine Appearance Clear Clear Stool Occult Blood Positive Stool Size Moderate Small Stool Characteristics Liquid Liquid Voiding Methods Incontinent Laboratory Results WBC 0.28 k/cumm (4.4-10.8) L* D 12/02/19 06:43 RBC 2.43 m/cumm (4.00-5.20) L 12/02/19 06:43 Hgb 7.5 g/dL (12.0-15.5) L 12/02/19 12:05 Hct 23.6 % (36.0-46.0) L 12/02/19 12:05 MCV 95.5 fL (80-95) H 12/02/19 06:43 MCH 30.0 pg (27.0-33.0) 12/02/19 06:43 MCHC 31.5 g/dL (32.0-36.0) L 12/02/19 06:43 RDW 17.4 % (11.7-14.6) H 12/02/19 06:43 Plt Count 59 x1000/uL (130-400) L 12/02/19 06:43 MPV 10.2 fL (8.0-11.0) 12/02/19 06:43 Immature Gran % 0.0 % 12/02/19 06:43 Neutrophils % 72.0 12/02/19 06:43 Band Neutrophils % 2.0 % 12/02/19 06:43 Lymphocytes % 18.0 12/02/19 06:43 Monocytes % 6.0 12/02/19 06:43 Eosinophils % 2.0 12/02/19 06:43 Basophils % 0.0 12/02/19 06:43 Absolute Neutrophils 0.21 k/cumm (1.2-6.7) L* 12/02/19 06:43 Absolute Lymphocytes 0.05 k/cumm (1.2-3.4) L 12/02/19 06:43 Absolute Monocytes 0.02 k/cumm (0.11-0.7) L 12/02/19 06:43 Absolute Eosinophils 0.01 k/cumm (0.0-0.7) 12/02/19 06:43 Absolute Basophils 0.00 k/cumm (0.0-0.2) 12/02/19 06:43 Nucleated RBCs 1 /100WBC 12/02/19 06:43 Differential Comment Manual differential 12/02/19 06:43 RBC Morphology See below 12/02/19 06:43 Polychromasia Present 12/02/19 06:43 Hypochromasia 2+ 12/02/19 06:43 Poikilocytosis 2+ 12/02/19 06:43 Anisocytosis 2+ 12/02/19 06:43 PT 14.3 sec (9.3-11.0) H 12/01/19 16:15 INR 1.4 (0.9-1.1) H 12/01/19 16:15 APTT 36.8 sec (21.0-31.4) H 12/01/19 16:15 VBG pH 7.37 (7.35-7.45) 12/01/19 16:15 VBG pCO2 47 mm/Hg (34-47) 12/01/19 16:15 VBG pO2 38 mm/Hg (28-44) 12/01/19 16:15 VBG HCO3 27 mmol/L (22-28) 12/01/19 16:15 VBG Total CO2 26 mmol/L (22-29) 12/01/19 16:15 VBG O2 Saturation 69 % (70-80) L 12/01/19 16:15 VBG Base Excess 1.8 mmol/L (-3-3) 12/01/19 16:15 Sodium 140 mmol/L (136-145) 12/02/19 06:43 Potassium 3.3 mmol/L (3.5-5.1) L 12/02/19 06:43 Chloride 105 mmol/L (98-107) 12/02/19 06:43 Carbon Dioxide 25.2 mmol/L (21.0-32.0) 12/02/19 06:43 Anion Gap 9.8 mmol/L (3-11) 12/02/19 06:43 BUN 37 mg/dL (7-18) H 12/02/19 06:43 Creatinine 2.22 mg/dL (0.55-1.02) H 12/02/19 06:43 Estimated GFR/1.73 m2 22.10 (mL/min/1.73m2) 12/02/19 06:43 Glucose 119 mg/dL (74-106) H 12/02/19 06:43 Lactate 1.3 mmol/L (0.6-1.4) 12/01/19 16:15 Calcium 6.5 mg/dL (8.5-10.1) L 12/02/19 06:43 Magnesium 1.1 mg/dL (1.8-2.4) L 12/02/19 06:43 Total Bilirubin 0.6 mg/dL (0.2-1.0) 12/01/19 16:15 AST 36 U/L (15-37) 12/01/19 16:15 ALT 24 U/L (14-59) 12/01/19 16:15 Alkaline Phosphatase 149 U/L (46-116) H 12/01/19 16:15 Total Protein 5.6 g/dL (6.4-8.2) L 12/01/19 16:15 Albumin 1.1 g/dL (3.4-5.0) L 12/01/19 16:15 Lipase 41 U/L (73-393) 12/01/19 16:15 Stool Campylobacter PCR Cancelled 12/01/19 17:10 Stool Salmonella PCR Cancelled 12/01/19 17:10 Stool Shigella PCR Cancelled 12/01/19 17:10 Shiga Toxin (PCR) Cancelled 12/01/19 17:10
--- NOTE | 2019-12-02 15:19 | WOUNDCONS_ITS ---
Wound Initial Evaluation Narrative: Pt is a 68 year old female consulted for multiple pressure injuries on her left side. Pt is agreeable to consult. Camera unavailable at this time, Will attempt to get photos durring the next dressing change. Chart reviewed, including H&P, recent labs, vital signs, and other providers? reports. Pt self admittedly favors laying on left side. Injuries are characteristic of Pressure injuries. Pt reports she is being followed by [facility] wound clinic and has an appointment this coming . She states that the last time she went to the clinic they wound team debrided her ankle wound but ran out of time and did not debride the unstageable ulcer on her left hip. Pt is diabetic and immunosuppresed d/t chemotherapy for current CA. She is at high risk for skin break down and delayed wound healing. See wound assessments below. 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) Obesity (Chronic 02/11/15) Obstructive sleep apnea (Chronic) Primary pancreatic cancer with metastasis to other site (Acute) Tubular adenoma of colon (Acute) - Wound Left Ear Wound Type: Pressure Ulcer Pressure Ulcer Stage: II Wound General Appearance: Open to air Wound Surrounding Tissue Appearance: Bright Red (blanchable redness surrounding ulcer) Wound Length: 0.2 (cm) Wound Width: 0.2 (cm) Wound Depth: 0.1 (cm) Wound Drainage Amount: None Left Hip Wound Type: Pressure Ulcer Pressure Ulcer Stage: Eschar/Unstageable Wound General Appearance: Blackened, Necrotic Wound Bed Greatest Portion: Black (Eschar) Wound Surrounding Tissue Appearance: Turney, Edematous Percent of Wound Bed Granulated/Red: 10 Percent of Wound Bed Slough/Yellow: 10 Percent of Wound Bed Eschar/Black: 80 (black and white eschar) Wound Length: 5.5 (cm) Wound Width: 6.0 (cm) Wound Depth: 0.1 (cm) Wound Drainage Amount: Minimal Wound Drainage Odor: Foul Odor Wound Drainage Description: Sero Sanguineous left lateral ankle Wound Type: Pressure Ulcer Pressure Ulcer Stage: III Wound General Appearance: Unapproximated Wound Bed Greatest Portion: Pale Turney Wound Bed Lesser Portion: Red (Granulation) Wound Surrounding Tissue Appearance: Macerated Wound Length: 1.5 (cm) Wound Width: 2.0 (cm) Wound Depth: 0.3 (cm) Wound Drainage Amount: Moderate Wound Drainage Odor: None/Absent Wound Drainage Description: Serous Left Shoulder Wound Type: Skin Tear Wound General Appearance: Unapproximated Wound Length: 1.5 (cm) Wound Width: 1.5 (cm) Wound Depth: 0.1 (cm) Wound Drainage Amount: None Wound Drainage Odor: None/Absent - Circulation, Sensation, Motion Peripheral Pulse Strength: Normal Capillary Refill: Less than 3 seconds Sensation Description: Within Normal Limits Skin Temperature: Warm Skin Color: Pale - Pain Pain Level: 5 (pain when debrisoft was used on pt. tolerated fair.) Pain Scale Used: Adult - Recomendation Recomendation:: Recommendations are as follows: Left Ear- Apply bacitracin to wound bed, cover with small circular bandaid. Apply and change daily. Left Hip- Cleanse wound with debrisoft Lolly. Apply Anansept gel to eschar/woundbed. cover w/mepilex w/border. Change and apply Daily and PRN. Left lateral Ankle- Cleanse wound with debrisoft. Apply Aquacell Extra to wound bed, Cover with Mepilex w/border. Change every other day and PRN. Left Shoulder- Cleanse skin tear with NS. Apply skin prep to periwound. Place Tegaderm absorbent over skin tear. Change 12/12/19 and PRN. AVOID positioning on Pts LEFT side. Reposition Q2H. Also recommend Pt makes her follow-up appointment with [facility] wound clinic next as previously scheduled. Thank you for the Consult! Physcian/Nurse Practioner Notified: Yes (Dr. Neville) Referrals: Dietary
[2019-12-02 16:28] LABS: FREE T4 1.04 ng/dL (0.76-1.46); TSH 2.65 uIU/mL (0.36-3.74)
[2019-12-02] MEDS: Furosemide 20 MG/2 ML VIAL IVP (16:53)
[2019-12-02 17:19] LABS: Bilirubin Negative (Negative); Blood Trace-intact (Negative); Clarity Cloudy (Clear); Glucose Negative (Negative); Ketones Negative (Negative); Leukocyte Esterase Negative (Negative); Nitrite Negative (Negative); Urobilinogen 0.2 EU/dL (Up TO 0.2)
[2019-12-02 17:50] LABS: Bacteria Moderate HPF (Negative); Epithelial Cells Many HPF (Negative); Other Cells Few Transitional (Negative)
[2019-12-02 17:52] LABS: C & S Indicated? C&S Done As Ordered; Crystals Many Amorphous HPF (Negative)
[2019-12-03 03:38] VITALS: BP 125/63; PULSE 80; RESP 18; TEMP 36.6; O2SAT 100
[2019-12-03] MEDS: Dextrose 50%-Water 25 GM/50 ML SYR IVP (04:55)
[2019-12-03] MEDS: Normal Saline Flush 10 ML SYR IVP ×3 (04:55→23:14)
[2019-12-03] MEDS: DEXTROSE 10%-WATER 500 ML 100 ML IV (05:30)
[2019-12-03 07:06] LABS: Absolute Monocyte Count 0.01 k/cumm (0.11-0.7); HCT 22.4 % (36.0-46.0); HGB 7.2 g/dL (12.0-15.5); Mean Corp. HGB Concentration 32.1 g/dL (32.0-36.0); Mean Corpuscular Hemoglobin 30.3 pg (27.0-33.0); Mean Corpuscular Volume 94.1 fL (80-95); Mean Platelet Volume 10.4 fL (8.0-11.0); RBC 2.38 m/cumm (4.00-5.20); RBC Distribution Width 17.2 % (11.7-14.6)
[2019-12-03 07:15] LABS: Anion Gap 9.1 mmol/L (3-11); BUN 32 mg/dL (7-18); CO2 26.9 mmol/L (21.0-32.0); CREATININE 1.86 mg/dL (0.55-1.02); Calcium 6.7 mg/dL (8.5-10.1); Chloride 107 mmol/L (98-107); Estimated GFR 27.11 (mL/min/1.73m2); Glucose 121 mg/dL (74-106); Magnesium 1.5 mg/dL (1.8-2.4); Potassium 3.3 mmol/L (3.5-5.1); Sodium 143 mmol/L (136-145)
[2019-12-03 07:45] VITALS: BP 126/62; PULSE 82; RESP 18; TEMP 36.7; O2SAT 96
[2019-12-03] MEDS: Amiodarone 200 MG TAB PO (07:52)
[2019-12-03] MEDS: Metoprolol CR 50 MG TABCR PO (07:52)
[2019-12-03 07:57] LABS: White Blood Cell Count 0.12 k/cumm (4.4-10.8)
[2019-12-03 07:58] LABS: Absolute Lymphocyte Count 0.03 k/cumm (1.2-3.4); Absolute Neutrophil Count 0.08 k/cumm (1.2-6.7); Anisocytosis 2+; Diff Comment Manual Differential
[2019-12-03 07:59] LABS: Platelet Count 43 x1000/uL (130-400); Poikilocytes 2+
[2019-12-03] MEDS: POTASSIUM CHLORIDE 20 MEQ/100 ML BAG 50 MEQ IVPB ×2 (09:24→11:51)
[2019-12-03] MEDS: Pantoprazole 40 MG VIAL IVP ×2 (10:56→23:14)
[2019-12-03] MEDS: MAGNESIUM SULFATE 4 GM/100 ML BAG IVPB (10:56)
[2019-12-03] MEDS: Bacitracin 1 PACKET TP (10:56)
--- NOTE | 2019-12-03 13:50 | W.PM.PROGNOT ---
Date of Service Date of service: 12/03/19 Time of Service: 13:50 Assessment and Plan Assessment and plan (1) Pancytopenia: Status: Acute Assessment and plan: Likely a combination of effects of gemcitabine and abraxane as well as her chronic anemia. S/p neuopogen. As patient would like to focus on comfort measures, will d/c prophylactic antibiotics. (2) Diarrhea: Status: Acute Assessment and plan: likely side effect of chemo. C. DIff negative. Continue prn loperamide. (3) Hypothermia: Status: Acute Assessment and plan: Offer braulio hugger for comfort. (4) Hypomagnesemia: Status: Acute Assessment and plan: Stop repletion and recheck. D/c tele. (5) Primary pancreatic cancer with metastasis to other site: Status: Chronic Assessment and plan: Consult palliative care/hospice planned for tomorrow. Until then, will start modified comfort measures (keep on D10, but focus on symptom management). D10 to be d/c'ed when family has said good byes. (6) Heme + stool: Status: Acute Assessment and plan: No further workup. Continue PPI for comfort. (7) Atrial fibrillation: Status: Chronic Assessment and plan: Stop amiodarone and anticoagulation. Stop tele. (8) Pulmonary edema: Status: Acute Assessment and plan: Provide prn morphine and ativan to control anxiety/air hunger. (9) Ascites: Status: Acute Assessment and plan: Focus on comfort measures.. (10) Obstructive sleep apnea: Status: Chronic Assessment and plan: Refuses CPAP. Comfort measures only (11) Insulin dependent type 2 diabetes mellitus: Status: Chronic Assessment and plan: Hypoglycemic even off insulin. D/c insulin. (12) DVT prophylaxis: Status: Acute Assessment and plan: Comfort measures. (13) Discharge planning issues: Status: Acute Assessment and plan: DNR/DNI Palliative care and hospice consulted. Starting modified comfort measures today. Subjective Subjective Interval history since last seen: Ms Rice says that last night she really did not feel good (again, was hypoglycemic to 48). She says that she is uncomfortable and wants to focus on comfort measures at this point. However, she wants to give her daughters an opportunity to come say good bye. We discussed that hypoglycemia could be due to her impaired clearance of her insulin in setting of ISABEL or it could be her pancreas overproducing insulin because it is irritated. She verbalized that she would be ok with us continuing to give us dextrose until her children have had a chance to come say goodbye, but otherwise wants us to focus on comfort measures. We will trial boluses of morphine and ativan prn for symptom management, but keep her on D10 tonight. Exam Narrative Exam Narrative: General: Pleasant pale obese female, feels cold to touch, A&Ox3 HEENT: EOMI, dry MM Heart: not auscultated today Lungs: mildly tachypneic when talking Abdomen: ascites Extremities: 1+ BLE edema Objective Objective Clinical Data: Abnormal lab results 12/02/19 12/03/19 12/03/19 Range/Units 17:00 06:40 06:40 WBC 0.12 L* D (4.4-10.8) k/cumm RBC 2.38 L (4.00-5.20) m/cumm Hgb 7.2 L (12.0-15.5) g/dL Hct 22.4 L (36.0-46.0) % RDW 17.2 H (11.7-14.6) % Plt Count 43 L (130-400) x1000/uL Absolute Neutrophils 0.08 L* (1.2-6.7) k/cumm Absolute Lymphocytes 0.03 L (1.2-3.4) k/cumm Absolute Monocytes 0.01 L (0.11-0.7) k/cumm Potassium 3.3 L (3.5-5.1) mmol/L BUN 32 H (7-18) mg/dL Creatinine 1.86 H (0.55-1.02) mg/dL Glucose 121 H (74-106) mg/dL Calcium 6.7 L (8.5-10.1) mg/dL Magnesium 1.5 L (1.8-2.4) mg/dL Urine Protein Trace H (Negative) mg/dL Urine Blood Trace-intact H (Negative) Urine RBC 3-5 H (0-2) HPF Vital Signs Temperature 36.7 C 12/03/19 07:45 Temperature Source Tympanic 12/03/19 07:45 Pulse 82 12/03/19 07:45 Pulse Rhythm Irregular 12/03/19 07:40 Pulse 72 12/01/19 18:01 Respiratory Rate 18 12/03/19 07:45 Respiratory Effort Non-Labored 12/03/19 07:40 Respiratory Depth Normal 12/03/19 07:40 Respiratory Pattern Normal 12/03/19 07:40 Blood Pressure 126/62 12/03/19 07:45 Blood Pressure Mean 63 12/01/19 18:00 Blood Pressure Position Supine 12/01/19 16:03 Pulse Oximetry 96 12/03/19 07:45 Oxygen Delivery Method Nasal Cannula 12/03/19 07:45 Oxygen Flow Rate 3 12/03/19 07:45 Pain Level 0 12/03/19 07:45 Comment 12/02/19 13:35 Intake & Output 12/02/19 12/03/19 12/03/19 23:59 11:59 23:59 Intake Total 100 / 2268.333 750 / 750 Balance 100 / 2268.333 750 / 750 Intake: IV 100 / 1968.333 500 / 500 Oral 250 / 250 Other: Urine Color Yellow Yellow Urine Appearance Clear Clear Urine Odor None Comment pt voided large amount. diaper soaked. Pt voided in diaper with moderate amount. Stool Size Moderate Stool Characteristics Liquid Voiding Methods Incontinent Diaper Laboratory Results WBC 0.12 k/cumm (4.4-10.8) L* D 12/03/19 06:40 RBC 2.38 m/cumm (4.00-5.20) L 12/03/19 06:40 Hgb 7.2 g/dL (12.0-15.5) L 12/03/19 06:40 Hct 22.4 % (36.0-46.0) L 12/03/19 06:40 MCV 94.1 fL (80-95) 12/03/19 06:40 MCH 30.3 pg (27.0-33.0) 12/03/19 06:40 MCHC 32.1 g/dL (32.0-36.0) 12/03/19 06:40 RDW 17.2 % (11.7-14.6) H 12/03/19 06:40 Plt Count 43 x1000/uL (130-400) L 12/03/19 06:40 MPV 10.4 fL (8.0-11.0) 12/03/19 06:40 Immature Gran % 0.0 % 12/03/19 06:40 Neutrophils % 68.0 12/03/19 06:40 Band Neutrophils % 2.0 % 12/02/19 06:43 Lymphocytes % 24.0 12/03/19 06:40 Monocytes % 8.0 12/03/19 06:40 Eosinophils % 0.0 12/03/19 06:40 Basophils % 0.0 12/03/19 06:40 Absolute Neutrophils 0.08 k/cumm (1.2-6.7) L* 12/03/19 06:40 Absolute Lymphocytes 0.03 k/cumm (1.2-3.4) L 12/03/19 06:40 Absolute Monocytes 0.01 k/cumm (0.11-0.7) L 12/03/19 06:40 Absolute Eosinophils 0.00 k/cumm (0.0-0.7) 12/03/19 06:40 Absolute Basophils 0.00 k/cumm (0.0-0.2) 12/03/19 06:40 Nucleated RBCs 1 /100WBC 12/02/19 06:43 Differential Comment Manual differential 12/03/19 06:40 RBC Morphology See below 12/03/19 06:40 Polychromasia Present 12/02/19 06:43 Hypochromasia 2+ 12/02/19 06:43 Poikilocytosis 2+ 12/03/19 06:40 Anisocytosis 2+ 12/03/19 06:40 PT 14.3 sec (9.3-11.0) H 12/01/19 16:15 INR 1.4 (0.9-1.1) H 12/01/19 16:15 APTT 36.8 sec (21.0-31.4) H 12/01/19 16:15 VBG pH 7.37 (7.35-7.45) 12/01/19 16:15 VBG pCO2 47 mm/Hg (34-47) 12/01/19 16:15 VBG pO2 38 mm/Hg (28-44) 12/01/19 16:15 VBG HCO3 27 mmol/L (22-28) 12/01/19 16:15 VBG Total CO2 26 mmol/L (22-29) 12/01/19 16:15 VBG O2 Saturation 69 % (70-80) L 12/01/19 16:15 VBG Base Excess 1.8 mmol/L (-3-3) 12/01/19 16:15 Sodium 143 mmol/L (136-145) 12/03/19 06:40 Potassium 3.3 mmol/L (3.5-5.1) L 12/03/19 06:40 Chloride 107 mmol/L (98-107) 12/03/19 06:40 Carbon Dioxide 26.9 mmol/L (21.0-32.0) 12/03/19 06:40 Anion Gap 9.1 mmol/L (3-11) 12/03/19 06:40 BUN 32 mg/dL (7-18) H 12/03/19 06:40 Creatinine 1.86 mg/dL (0.55-1.02) H 12/03/19 06:40 Estimated GFR/1.73 m2 27.11 (mL/min/1.73m2) 12/03/19 06:40 Glucose 121 mg/dL (74-106) H 12/03/19 06:40 Lactate 1.3 mmol/L (0.6-1.4) 12/01/19 16:15 Calcium 6.7 mg/dL (8.5-10.1) L 12/03/19 06:40 Magnesium 1.5 mg/dL (1.8-2.4) L 12/03/19 06:40 Total Bilirubin 0.6 mg/dL (0.2-1.0) 12/01/19 16:15 AST 36 U/L (15-37) 12/01/19 16:15 ALT 24 U/L (14-59) 12/01/19 16:15 Alkaline Phosphatase 149 U/L (46-116) H 12/01/19 16:15 Total Protein 5.6 g/dL (6.4-8.2) L 12/01/19 16:15 Albumin 1.1 g/dL (3.4-5.0) L 12/01/19 16:15 Lipase 41 U/L (73-393) 12/01/19 16:15 TSH 2.65 uIU/mL (0.36-3.74) 12/02/19 01:00 Free T4 1.04 ng/dL (0.76-1.46) 12/02/19 01:00 Urine Color Yellow (Yellow) 12/02/19 17:00 Urine Clarity Cloudy (Clear) 12/02/19 17:00 Urine pH 5.0 (5-8) 12/02/19 17:00 Ur Specific [place] 1.020 (1.005-1.025) 12/02/19 17:00 Urine Protein Trace mg/dL (Negative) H 12/02/19 17:00 Urine Ketones Negative mg/dL (Negative) 12/02/19 17:00 Urine Blood Trace-intact (Negative) H 12/02/19 17:00 Urine Nitrite Negative (Negative) 12/02/19 17:00 Urine Bilirubin Negative (Negative) 12/02/19 17:00 Urine Urobilinogen 0.2 EU/dL (Up TO 0.2) 12/02/19 17:00 Ur Leukocyte Esterase Negative (Negative) 12/02/19 17:00 Urine RBC 3-5 HPF (0-2) H 12/02/19 17:00 Urine WBC 3-5 HPF (0-5) 12/02/19 17:00 Ur Epithelial Cells Many HPF (Negative) 12/02/19 17:00 Urine Crystals Many amorphous HPF (Negative) 12/02/19 17:00 Urine Bacteria Moderate HPF (Negative) 12/02/19 17:00 Urine Mucus (Negative) 12/02/19 17:00 Urine Other Few transitional (Negative) 12/02/19 17:00 Ur Culture Indicated? C&s done as ordered 12/02/19 17:00 Urine Glucose Negative mg/dL (Negative) 12/02/19 17:00 Stool Campylobacter PCR Cancelled 12/01/19 17:10 Stool Salmonella PCR Cancelled 12/01/19 17:10 Stool Shigella PCR Cancelled 12/01/19 17:10 Shiga Toxin (PCR) Cancelled 12/01/19 17:10
[2019-12-03] MEDS: DEXTROSE 10%-WATER 500 ML 50 ML IV ×2 (14:06→23:58)
[2019-12-03 14:13] VITALS: PULSE 68
[2019-12-03] MEDS: MORPHine 2 MG/ML SYR 1 MG IVP ×2 (17:50→23:29)
--- NOTE | 2019-12-03 19:19 | CMPROGNOTE_ITS ---
- If Service Date Differs Date of service: 12/03/19 Time of Service: 19:19 Care Management Progress Note S/O: Faviola was sitting up in bed when CM met with her. Her Aric was by her side. She reported that she remains uncomfortable. 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 There is a Hospice consult ordered, and she will be high priority to be seen tomorrow if she does not pass overnight. Per provider, it is likely that she will pass imminently. CM discussed arrangements and provided resources to Faviola and Aric. Faviola does not want to have a or use a home, but she wants to talk to her daughters to make sure they are comfortable with direct cremation. CM will continue to provide support and comfort to Faviola, her family, and staff. A: Faviola is a 68 year old female admitted to [facility] on 12/02/2019 with pancytopenia. 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 P: Faviola has transitioned to MUD CAR WORKER, and is awaiting her daughter's arrival for final goodbye's. Her , Aric is by her side. Hospice has been consulted, but per provider, her passing is imminent. Family is still deciding on arrangements, but they are considering Direct Cremation, followed by a small, family celebration of life later in the spring. CM will continue to follow and provide support to Faviola, her family and staff.
[2019-12-04] MEDS: MORPHine 2 MG/ML SYR 1 MG IVP ×7 (05:53→23:28)
--- NOTE | 2019-12-04 08:18 | PCNE_ITS ---
Date of service: 12/04/19 Time of Service: 08:18 History of Present Illness History of Present Illness Chief Complaint: pancreatic cancer with ascites Consults Consult date: 12/04/19 Requesting physician: Jenny Neville Assessment and Plan Assessment and plan (1) Pancytopenia: Status: Acute (2) Primary pancreatic cancer with metastasis to other site: Status: Chronic (3) Diabetic neuropathy: Status: Chronic (4) Ascites: Status: Acute (5) Discharge planning issues: Status: Acute Assessment and plan: Faviola was in the room with her and daughter. Her other daughter will be coming sometime today. She knows she does not have long to live and is comfortable with her plan to in the hospital. She understands that she may live longer than she thinks in which case she would need to leave the hospital. A friend of theirs Roberto Desai does take people in for end-of-life care. He lives just doors from them. She is willing to go to his home if absolutely necessary. But she prefers to in the hospital Bloody nose?problem with pancytopenia and thrombocytopenia. Recommended that she use a saline nasal spray Throat is quite sore. She is already on Magic mouthwash 3 times daily. This may need to be increased or changed to a different formula. Ascites?because of her low platelets they are reluctant to tap her here. That is the thing that gives her the most comfort. After speaking with Dr. Neville the plan is to increase her pain medication to help her stomach pain. We will check in on her again although it appears that unless she goes to live with Roberto Desai she will in the hospital I spoke with Dr Neville about paracentesis. Due to her thrombocytopenia it would be better to control pain than make her worse with a proceedure This document was created by [employer] recognition and may contain grammatical and translation errors. Review of Systems Narrative: She states that she has pain in the back of her throat. She does have bleeding from her nose that she thinks is because of her blood counts. She has increasing pain in her abdomen especially if she pushes her abdomen against something such as the railing of the bed. She does not think she has had any fevers or felt feverish. She is feels calvin that her pain has been so low during this whole process. She is not eating much she cannot remember her bowel movements. The plan is to wait until her daughter arrives and then turn off the infusion of D10. 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 Her family is by her side. She is spe aking in complete sentences. Her heart is regular. Her lungs are clear. She does have blood dripping from her nasal cannula. She has crusty blood in the back of her throat. Her neck is supple. Abdomen is tense with ascites. She does have some edema in both legs. Results Last Vital Signs Temp 98.1 F 12/03/19 07:45 Pulse 68 12/03/19 14:13 Resp 18 12/03/19 07:45 BP 126/62 12/03/19 07:45 Pulse Ox 96 12/03/19 07:45 Labs Result diagrams: 12/03/19 06:40 12/03/19 06:40
[2019-12-04] MEDS: Bacitracin 1 PACKET TP (08:25)
[2019-12-04] MEDS: Biotene Mouthwash 237 ML BTL MM (08:30)
--- NOTE | 2019-12-04 09:38 | NUR.NOTE ---
Nursing Note: FAMILY AND PT ARE AWAITING ARRIVAL OF DAUGHTER TO COME SEE [place]. SPOUSE STATES THAT THEY WOULD LIKE TO HOLD ALL MEDICATIONS. WHEN DAUGHTER GETS HERE THEY WOULD PROBABLY TURN OFF THE D10W AND SEE WHAT HAPPENS WITH HER SUGARS. THEY ARE AWARE HER SUGARS WILL PROBABLE DEGREASE PREVIOUS WHEN THIS IS SHUT OFF. WE WILL REVISIT FAMILY PLAN WHEN DAUGHTER GETS HERE.
[2019-12-04] MEDS: DEXTROSE 10%-WATER 500 ML 50 ML IV (09:49)
[2019-12-04 10:29] VITALS: O2SAT 99
[2019-12-04 10:30] VITALS: O2SAT 96
[2019-12-04 10:59] LABS: Campylobacter PCR Negative (Negative); Salmonella PCR Negative (Negative); Shiga Toxin PCR Negative (Negative); Shigella/Enteroinvasive Ecoli Negative (Negative)
[2019-12-04] MEDS: Sodium Chloride-Nasal SPRAY-ADULT 44 ML BTL NS ×3 (11:00→17:23)
[2019-12-04] MEDS: Pantoprazole 40 MG VIAL IVP ×2 (11:14→20:59)
[2019-12-04] MEDS: Normal Saline Flush 10 ML SYR IVP ×4 (11:14→23:28)
--- NOTE | 2019-12-04 11:50 | W.NUTCONSULT ---
Date of service: 12/04/19 Time of Service: 11:50 Nutritional Consult ASSESSMENT: 68 yo female in ICU with ascites, pulmonary edema, pancreatic cancer with mets, s/p chemotherapy with mouth sores, multiple pressure wounds on left side, NIDDM, HTN, diarrhea, hypomagnesemia. Following a clear liquid diet with minimal intake, mostly popsicles, receiving D10 for hydration/nutrition. Pallative consult pending. Actively dying. Will continue to monitor and address nutritional/hydration issues as needed. INTERVENTION: will monitor po intake, labs, weights Time Spent in Nutritional Counseling and Treatment: 0 time spent face to face
--- NOTE | 2019-12-04 12:59 | W.SURGCON ---
Date of service: 12/04/19 Time of Service: 13:00 Assessment and Plan Assessment and plan (1) Ascites: Status: Acute Assessment and plan: The patient is in the hospital for comfort measures. She is currently maintained on D10 but is considering stopping this, which may result in a quick declines of her blood sugar. Today the ascites is not symptomatic enough to require paracentesis. I will check on her tomorrow. Placing an indwelling catheter is an option but may not fit with her prognosis. We will evaluate on a day to day basis. History of Present Illness Narrative: Patient under palliative care for metastatic pancreatic cancer. Prefers to stay in the hospital for this process. She had has paracentesis performed 5 times which has improved her abdominal discomfort and SOB. The last time was [address] [facility] when about 5L was removed. She currently denies significant abdominal pain. She is somewhat SOB with speaking. At this point she does not feel paracentesis needs to be done urgently. A pigtail catheter placement was scheduled for this with [place] [facility]. Her oncology now feels the benefit of the indwelling catheter outweighs the risk of infection. 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) Obesity (Chronic 02/11/15) Obstructive sleep apnea (Chronic) Primary pancreatic cancer with metastasis to other site (Chronic) Tubular adenoma of colon (Acute) Surgical History section X 2 Cholecystectomy S/P appendectomy (Acute) S/P hysterectomy (Acute) S/P laparotomy (Acute) Social History Smoking/Tobacco Use Status: Never Alcohol Intake: never Drug use: Never Substance use type: does not use Household members: spouse current occupation: retired Do you feel safe at home: Yes Do you feel safe in your relationship?: Yes Exam Narrative Exam Narrative: Alert, conversant Abdomen distended but not tense. No significant tenderness Results Last Vital Signs Temp 98.1 F 12/03/19 07:45 Pulse 68 12/03/19 14:13 Resp 18 12/03/19 07:45 BP 126/62 12/03/19 07:45 Pulse Ox 96 12/04/19 10:30 Labs Result diagrams: 12/03/19 06:40 12/03/19 06:40 Labs: Laboratory Results - last 24 hr 12/01/19 19:25 Stool Campylobacter PCR Negative Stool Salmonella PCR Negative Stool Shigella PCR Negative Shiga Toxin (PCR) Negative
--- NOTE | 2019-12-04 13:58 | W.PM.PROGNOT ---
Date of Service Date of service: 12/04/19 Time of Service: 13:58 Assessment and Plan Assessment and plan (1) Pancytopenia: Status: Acute Assessment and plan: Likely a combination of effects of gemcitabine and abraxane as well as her chronic anemia. S/p neuopogen. No longer checking labs at this point as goal is comfort measures. Prophylactic antibiotics d/c'ed. (2) Diarrhea: Status: Acute Assessment and plan: likely side effect of chemo. C. DIff negative. Continue prn loperamide. (3) Hypothermia: Status: Acute Assessment and plan: Offer braulio hugger for comfort. (4) Hypomagnesemia: Status: Acute Assessment and plan: no longer monitoring (5) Primary pancreatic cancer with metastasis to other site: Status: Chronic Assessment and plan: Patient is on modified comfort measures - she will let us know when she is ready for D10 to be d/c'ed. She does not want to diet at home. Appreciate palliative care consult. (6) Heme + stool: Status: Acute Assessment and plan: No further workup. Continue PPI for comfort. (7) Atrial fibrillation: Status: Chronic Assessment and plan: Stop amiodarone and anticoagulation. Stop tele. (8) Pulmonary edema: Status: Acute Assessment and plan: Provide prn morphine and ativan to control anxiety/air hunger. (9) Ascites: Status: Acute Assessment and plan: Focus on comfort measures. (10) Obstructive sleep apnea: Status: Chronic Assessment and plan: Refuses CPAP. Comfort measures only (11) Insulin dependent type 2 diabetes mellitus: Status: Chronic Assessment and plan: Hypoglycemic even off insulin. On D10 until ready for it to come off. (12) DVT prophylaxis: Status: Acute Assessment and plan: Comfort measures. (13) Discharge planning issues: Status: Acute Assessment and plan: DNR/DNI Palliative care on board. Would like to in the hospital. Subjective Subjective Interval history since last seen: Ms Rice states that she does not feel like she needs paracenthesis right now. Her breathing is ok right now, and she feels comfortable. She would like to have her body donated to science when she dies. She would like to talk to care management about how to do that. She states she will let the nursing know when she is ready to have the D10 fluids d/c'ed. She met with palliative care. She does not want to at home. Exam Narrative Exam Narrative: General: Pleasant pale obese female, looks more animated, A&Ox3 HEENT: EOMI, dry MM Heart: not auscultated today Lungs: mildly tachypneic when talking Abdomen: ascites Extremities: covered in blankets Objective Objective Clinical Data: Vital Signs Temperature 36.7 C 12/03/19 07:45 Temperature Source Tympanic 12/03/19 07:45 Pulse 68 12/03/19 14:13 Pulse Rhythm Irregular 12/04/19 09:36 Pulse 72 12/01/19 18:01 Respiratory Rate 18 12/03/19 07:45 Respiratory Effort Non-Labored 12/04/19 09:36 Respiratory Depth Normal 12/04/19 09:36 Respiratory Pattern Normal 12/04/19 09:36 Blood Pressure 126/62 12/03/19 07:45 Blood Pressure Mean 63 12/01/19 18:00 Blood Pressure Position Supine 12/01/19 16:03 Pulse Oximetry 96 12/04/19 10:30 Oxygen Delivery Method Nasal Cannula 12/04/19 10:30 Oxygen Flow Rate 2 12/04/19 10:30 Pain Level 6 12/04/19 13:50 Comment 12/02/19 13:35 Intake & Output 12/03/19 12/04/19 12/04/19 23:59 11:59 23:59 Intake Total 1086.666 / 1836.666 492.5 / 492.5 Balance 1086.666 / 1836.666 492.5 / 492.5 Intake: IV 1086.666 / 1586.666 492.5 / 492.5 Other: Urine Color Yellow Yellow Urine Appearance Clear Clear Urine Odor None Comment soaked diaper Voiding Methods Incontinent Diaper Laboratory Results WBC 0.12 k/cumm (4.4-10.8) L* D 12/03/19 06:40 RBC 2.38 m/cumm (4.00-5.20) L 12/03/19 06:40 Hgb 7.2 g/dL (12.0-15.5) L 12/03/19 06:40 Hct 22.4 % (36.0-46.0) L 12/03/19 06:40 MCV 94.1 fL (80-95) 12/03/19 06:40 MCH 30.3 pg (27.0-33.0) 12/03/19 06:40 MCHC 32.1 g/dL (32.0-36.0) 12/03/19 06:40 RDW 17.2 % (11.7-14.6) H 12/03/19 06:40 Plt Count 43 x1000/uL (130-400) L 12/03/19 06:40 MPV 10.4 fL (8.0-11.0) 12/03/19 06:40 Immature Gran % 0.0 % 12/03/19 06:40 Neutrophils % 68.0 12/03/19 06:40 Band Neutrophils % 2.0 % 12/02/19 06:43 Lymphocytes % 24.0 12/03/19 06:40 Monocytes % 8.0 12/03/19 06:40 Eosinophils % 0.0 12/03/19 06:40 Basophils % 0.0 12/03/19 06:40 Absolute Neutrophils 0.08 k/cumm (1.2-6.7) L* 12/03/19 06:40 Absolute Lymphocytes 0.03 k/cumm (1.2-3.4) L 12/03/19 06:40 Absolute Monocytes 0.01 k/cumm (0.11-0.7) L 12/03/19 06:40 Absolute Eosinophils 0.00 k/cumm (0.0-0.7) 12/03/19 06:40 Absolute Basophils 0.00 k/cumm (0.0-0.2) 12/03/19 06:40 Nucleated RBCs 1 /100WBC 12/02/19 06:43 Differential Comment Manual differential 12/03/19 06:40 RBC Morphology See below 12/03/19 06:40 Polychromasia Present 12/02/19 06:43 Hypochromasia 2+ 12/02/19 06:43 Poikilocytosis 2+ 12/03/19 06:40 Anisocytosis 2+ 12/03/19 06:40 PT 14.3 sec (9.3-11.0) H 12/01/19 16:15 INR 1.4 (0.9-1.1) H 12/01/19 16:15 APTT 36.8 sec (21.0-31.4) H 12/01/19 16:15 VBG pH 7.37 (7.35-7.45) 12/01/19 16:15 VBG pCO2 47 mm/Hg (34-47) 12/01/19 16:15 VBG pO2 38 mm/Hg (28-44) 12/01/19 16:15 VBG HCO3 27 mmol/L (22-28) 12/01/19 16:15 VBG Total CO2 26 mmol/L (22-29) 12/01/19 16:15 VBG O2 Saturation 69 % (70-80) L 12/01/19 16:15 VBG Base Excess 1.8 mmol/L (-3-3) 12/01/19 16:15 Sodium 143 mmol/L (136-145) 12/03/19 06:40 Potassium 3.3 mmol/L (3.5-5.1) L 12/03/19 06:40 Chloride 107 mmol/L (98-107) 12/03/19 06:40 Carbon Dioxide 26.9 mmol/L (21.0-32.0) 12/03/19 06:40 Anion Gap 9.1 mmol/L (3-11) 12/03/19 06:40 BUN 32 mg/dL (7-18) H 12/03/19 06:40 Creatinine 1.86 mg/dL (0.55-1.02) H 12/03/19 06:40 Estimated GFR/1.73 m2 27.11 (mL/min/1.73m2) 12/03/19 06:40 Glucose 121 mg/dL (74-106) H 12/03/19 06:40 Lactate 1.3 mmol/L (0.6-1.4) 12/01/19 16:15 Calcium 6.7 mg/dL (8.5-10.1) L 12/03/19 06:40 Magnesium 1.5 mg/dL (1.8-2.4) L 12/03/19 06:40 Total Bilirubin 0.6 mg/dL (0.2-1.0) 12/01/19 16:15 AST 36 U/L (15-37) 12/01/19 16:15 ALT 24 U/L (14-59) 12/01/19 16:15 Alkaline Phosphatase 149 U/L (46-116) H 12/01/19 16:15 Total Protein 5.6 g/dL (6.4-8.2) L 12/01/19 16:15 Albumin 1.1 g/dL (3.4-5.0) L 12/01/19 16:15 Lipase 41 U/L (73-393) 12/01/19 16:15 TSH 2.65 uIU/mL (0.36-3.74) 12/02/19 01:00 Free T4 1.04 ng/dL (0.76-1.46) 12/02/19 01:00 Urine Color Yellow (Yellow) 12/02/19 17:00 Urine Clarity Cloudy (Clear) 12/02/19 17:00 Urine pH 5.0 (5-8) 12/02/19 17:00 Ur Specific [place] 1.020 (1.005-1.025) 12/02/19 17:00 Urine Protein Trace mg/dL (Negative) H 12/02/19 17:00 Urine Ketones Negative mg/dL (Negative) 12/02/19 17:00 Urine Blood Trace-intact (Negative) H 12/02/19 17:00 Urine Nitrite Negative (Negative) 12/02/19 17:00 Urine Bilirubin Negative (Negative) 12/02/19 17:00 Urine Urobilinogen 0.2 EU/dL (Up TO 0.2) 12/02/19 17:00 Ur Leukocyte Esterase Negative (Negative) 12/02/19 17:00 Urine RBC 3-5 HPF (0-2) H 12/02/19 17:00 Urine WBC 3-5 HPF (0-5) 12/02/19 17:00 Ur Epithelial Cells Many HPF (Negative) 12/02/19 17:00 Urine Crystals Many amorphous HPF (Negative) 12/02/19 17:00 Urine Bacteria Moderate HPF (Negative) 12/02/19 17:00 Urine Mucus (Negative) 12/02/19 17:00 Urine Other Few transitional (Negative) 12/02/19 17:00 Ur Culture Indicated? C&s done as ordered 12/02/19 17:00 Urine Glucose Negative mg/dL (Negative) 12/02/19 17:00 Stool Campylobacter PCR Negative (Negative) 12/01/19 19:25 Stool Salmonella PCR Negative (Negative) 12/01/19 19:25 Stool Shigella PCR Negative (Negative) 12/01/19 19:25 Shiga Toxin (PCR) Negative (Negative) 12/01/19 19:25
--- NOTE | 2019-12-04 15:58 | NUR.NOTE ---
DR. SIEGEL OFFICE RETURNED CALL--RE: DONATING BODY TO [facility] -- OFFICE STATED TO GIVE FAMILY THE NUMBER TO [facility] [phone], AND HAVE THE FAMILY CONTACT THEM, FOR GENERAL INFORMATION ABOUT BODY DONATION.
[2019-12-04] MEDS: Ondansetron 4 MG/2 ML VIAL IVP (17:51)
--- NOTE | 2019-12-04 18:23 | CMPROGNOTE_ITS ---
- If Service Date Differs Date of service: 12/04/19 Time of Service: 18:23 Care Management Progress Note S/O: Faviola was sitting up in her bed when CM met with her. 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 Her and daughters were present in her room all day, along with several visitors. CM provided Faviola with information regarding donating her body to [facility] or [facility], at her request. CM will continue to support Faviola, her family and staff. A: Faviola is a 68 year old female admitted to [facility] on 12/02/2019 with pancytopenia. She has transitioned to SOLAR FIELD SERVICE TECHNICIAN. P: Faviola has transitioned to SOLAR FIELD SERVICE TECHNICIAN, and is surrounded by family and friends. Hospice has been consulted, but per provider, her passing is imminent. Family is still deciding on arrangements, but they are considering [facility], followed by a small, family celebration of life later in the spring. CM will continue to follow and provide support to Faviola, her family and staff.
--- NOTE | 2019-12-04 18:23 | PDOC.CMPRO ---
- If Service Date Differs Date of service: 12/04/19 Time of Service: 18:23 Care Management Progress Note S/O: Faviola was sitting up in her bed when CM met with her. 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 Her and daughters were present in her room all day, along with several visitors. CM provided Faviola with information regarding donating her body to [facility] or [facility], at her request. CM will continue to support Faviola, her family and staff. A: Faviola is a 68 year old female admitted to [facility] on 12/02/2019 with pancytopenia. She has transitioned to PILE DRIVER OPERATOR HELPER. P: Faviola has transitioned to PILE DRIVER OPERATOR HELPER, and is surrounded by family and friends. Hospice has been consulted, but per provider, her passing is imminent. Family is still deciding on arrangements, but they are considering [facility], followed by a small, family celebration of life later in the spring. CM will continue to follow and provide support to Faviola, her family and staff.
[2019-12-05] MEDS: MORPHine 2 MG/ML SYR 1 MG IVP ×5 (02:02→10:00)
[2019-12-05] MEDS: Normal Saline Flush 10 ML SYR IVP ×5 (02:02→10:01)
[2019-12-05] MEDS: Ondansetron 4 MG/2 ML VIAL IVP (06:48)
--- NOTE | 2019-12-05 08:51 | PDOC.CMPRO ---
Care Management Progress Note S/O: Faviola's treatment continues to be directed toward her comfort, she was started on a morphine pump and appears comfortable. She had a surgical consult with the following determination: We agreed to hold off on paracentesis as her pain is controlled and platelet count is very low. Faviola remains GAS SYSTEM OPERATOR status with the plan to remain at [facility] for end of life care. Her and daughters and visitors continue to be present and supportive during this time. will continue to support Faviola, her family and staff. A: Faviola is a 68 year old female admitted to [facility] on 12/02/2019 with pancytopenia. She has transitioned to GAS SYSTEM OPERATOR. P: Faviola has transitioned to GAS SYSTEM OPERATOR, and is surrounded by family and friends. Hospice has been consulted, but per provider, her passing is imminent. Family is still deciding on arrangements, but they are considering [facility], followed by a small, family celebration of life later in the spring. CM provided Faviola with information regarding donating her body to [facility] or [facility], at her request. will continue to follow and provide support to Faviola, her family and staff.
[2019-12-05] MEDS: Pantoprazole 40 MG VIAL IVP (10:01)
--- NOTE | 2019-12-05 10:26 | PGE_ITS ---
Date of Service Date of service: 12/05/19 Time of Service: 10:26 Assessment and Plan Assessment and plan (1) Primary pancreatic cancer with metastasis to other site: Status: Chronic Assessment and plan: patient is now on comfort care only. will start on morphine drip for better pain management. continue oral care for comfort. (2) Ascites: Status: Acute Assessment and plan: surgical consult for paracentesis. platelets too low to safely attempt. patient with better pain management now on morphine. will forgo paracentesis d/t increase risk of bleeding or more suffering. (3) Discharge planning issues: Status: Acute Assessment and plan: is now comfort care, DNR/DNI. anticipate end of life care here (4) Obstructive sleep apnea: Status: Chronic Assessment and plan: refuses cpap, on comfort care only Subjective Subjective Patient reports: still having pain Interval history since last seen: patient with ongoing intermittent bloody nose with some associated nausea. using zofran with good effect. also c/o increased abdominal distention and swelling from ascities. Exam Const General: cooperative, in distress mild, frail appearing and ill appearing Nutritional Appearance: obese Orientation: alert and awake [facility] Head: normal to inspection, normocephalic and atraumatic Mouth: moist mucous membranes abnormal (dry, oral exudate and sores) Resp Effort & Inspection: normal respiratory effort Auscultation: diminished lung sounds Cardio Rate: regular rate Rhythm: regular rhythm GI Inspection: distended and obesity Palpation: soft and ascites Neuro General: alert, awake and oriented Patient Orientation: Person Speech: speech normal Extrem General: full ROM Right upper extremity: edema Objective Objective Clinical Data: Vital Signs Temperature 36.7 C 12/03/19 07:45 Temperature Source Tympanic 12/03/19 07:45 Pulse 68 12/03/19 14:13 Pulse Rhythm Irregular 12/04/19 09:36 Pulse 72 12/01/19 18:01 Respiratory Rate 18 12/03/19 07:45 Respiratory Effort 12/04/19 23:30 Respiratory Depth Normal 12/04/19 23:30 Respiratory Pattern Normal 12/04/19 23:30 Blood Pressure 126/62 12/03/19 07:45 Blood Pressure Mean 63 12/01/19 18:00 Blood Pressure Position Supine 12/01/19 16:03 Pulse Oximetry 96 12/04/19 10:30 Oxygen Delivery Method Nasal Cannula 12/04/19 10:30 Oxygen Flow Rate 2 12/04/19 10:30 Pain Level 7 12/04/19 17:27 Comment 12/02/19 13:35 Intake & Output 12/04/19 12/04/19 12/05/19 11:59 23:59 11:59 Intake Total 492.5 / 1058.333 565.833 / 1058.333 Balance 492.5 / 1058.333 565.833 / 1058.333 Intake: IV 492.5 / 858.333 365.833 / 858.333 Oral 200 / 200 Other: Urine Color Yellow Yellow Urine Appearance Clear Clear Comment soaked diaper Voiding Methods Diaper Diaper Incontinent Laboratory Results WBC 0.12 k/cumm (4.4-10.8) L* D 12/03/19 06:40 RBC 2.38 m/cumm (4.00-5.20) L 12/03/19 06:40 Hgb 7.2 g/dL (12.0-15.5) L 12/03/19 06:40 Hct 22.4 % (36.0-46.0) L 12/03/19 06:40 MCV 94.1 fL (80-95) 12/03/19 06:40 MCH 30.3 pg (27.0-33.0) 12/03/19 06:40 MCHC 32.1 g/dL (32.0-36.0) 12/03/19 06:40 RDW 17.2 % (11.7-14.6) H 12/03/19 06:40 Plt Count 43 x1000/uL (130-400) L 12/03/19 06:40 MPV 10.4 fL (8.0-11.0) 12/03/19 06:40 Immature Gran % 0.0 % 12/03/19 06:40 Neutrophils % 68.0 12/03/19 06:40 Band Neutrophils % 2.0 % 12/02/19 06:43 Lymphocytes % 24.0 12/03/19 06:40 Monocytes % 8.0 12/03/19 06:40 Eosinophils % 0.0 12/03/19 06:40 Basophils % 0.0 12/03/19 06:40 Absolute Neutrophils 0.08 k/cumm (1.2-6.7) L* 12/03/19 06:40 Absolute Lymphocytes 0.03 k/cumm (1.2-3.4) L 12/03/19 06:40 Absolute Monocytes 0.01 k/cumm (0.11-0.7) L 12/03/19 06:40 Absolute Eosinophils 0.00 k/cumm (0.0-0.7) 12/03/19 06:40 Absolute Basophils 0.00 k/cumm (0.0-0.2) 12/03/19 06:40 Nucleated RBCs 1 /100WBC 12/02/19 06:43 Differential Comment Manual differential 12/03/19 06:40 RBC Morphology See below 12/03/19 06:40 Polychromasia Present 12/02/19 06:43 Hypochromasia 2+ 12/02/19 06:43 Poikilocytosis 2+ 12/03/19 06:40 Anisocytosis 2+ 12/03/19 06:40 PT 14.3 sec (9.3-11.0) H 12/01/19 16:15 INR 1.4 (0.9-1.1) H 12/01/19 16:15 APTT 36.8 sec (21.0-31.4) H 12/01/19 16:15 VBG pH 7.37 (7.35-7.45) 12/01/19 16:15 VBG pCO2 47 mm/Hg (34-47) 12/01/19 16:15 VBG pO2 38 mm/Hg (28-44) 12/01/19 16:15 VBG HCO3 27 mmol/L (22-28) 12/01/19 16:15 VBG Total CO2 26 mmol/L (22-29) 12/01/19 16:15 VBG O2 Saturation 69 % (70-80) L 12/01/19 16:15 VBG Base Excess 1.8 mmol/L (-3-3) 12/01/19 16:15 Sodium 143 mmol/L (136-145) 12/03/19 06:40 Potassium 3.3 mmol/L (3.5-5.1) L 12/03/19 06:40 Chloride 107 mmol/L (98-107) 12/03/19 06:40 Carbon Dioxide 26.9 mmol/L (21.0-32.0) 12/03/19 06:40 Anion Gap 9.1 mmol/L (3-11) 12/03/19 06:40 BUN 32 mg/dL (7-18) H 12/03/19 06:40 Creatinine 1.86 mg/dL (0.55-1.02) H 12/03/19 06:40 Estimated GFR/1.73 m2 27.11 (mL/min/1.73m2) 12/03/19 06:40 Glucose 121 mg/dL (74-106) H 12/03/19 06:40 Lactate 1.3 mmol/L (0.6-1.4) 12/01/19 16:15 Calcium 6.7 mg/dL (8.5-10.1) L 12/03/19 06:40 Magnesium 1.5 mg/dL (1.8-2.4) L 12/03/19 06:40 Total Bilirubin 0.6 mg/dL (0.2-1.0) 12/01/19 16:15 AST 36 U/L (15-37) 12/01/19 16:15 ALT 24 U/L (14-59) 12/01/19 16:15 Alkaline Phosphatase 149 U/L (46-116) H 12/01/19 16:15 Total Protein 5.6 g/dL (6.4-8.2) L 12/01/19 16:15 Albumin 1.1 g/dL (3.4-5.0) L 12/01/19 16:15 Lipase 41 U/L (73-393) 12/01/19 16:15 TSH 2.65 uIU/mL (0.36-3.74) 12/02/19 01:00 Free T4 1.04 ng/dL (0.76-1.46) 12/02/19 01:00 Urine Color Yellow (Yellow) 12/02/19 17:00 Urine Clarity Cloudy (Clear) 12/02/19 17:00 Urine pH 5.0 (5-8) 12/02/19 17:00 Ur Specific [place] 1.020 (1.005-1.025) 12/02/19 17:00 Urine Protein Trace mg/dL (Negative) H 12/02/19 17:00 Urine Ketones Negative mg/dL (Negative) 12/02/19 17:00 Urine Blood Trace-intact (Negative) H 12/02/19 17:00 Urine Nitrite Negative (Negative) 12/02/19 17:00 Urine Bilirubin Negative (Negative) 12/02/19 17:00 Urine Urobilinogen 0.2 EU/dL (Up TO 0.2) 12/02/19 17:00 Ur Leukocyte Esterase Negative (Negative) 12/02/19 17:00 Urine RBC 3-5 HPF (0-2) H 12/02/19 17:00 Urine WBC 3-5 HPF (0-5) 12/02/19 17:00 Ur Epithelial Cells Many HPF (Negative) 12/02/19 17:00 Urine Crystals Many amorphous HPF (Negative) 12/02/19 17:00 Urine Bacteria Moderate HPF (Negative) 12/02/19 17:00 Urine Mucus (Negative) 12/02/19 17:00 Urine Other Few transitional (Negative) 12/02/19 17:00 Ur Culture Indicated? C&s done as ordered 12/02/19 17:00 Urine Glucose Negative mg/dL (Negative) 12/02/19 17:00 Stool Campylobacter PCR Negative (Negative) 12/01/19 19:25 Stool Salmonella PCR Negative (Negative) 12/01/19 19:25 Stool Shigella PCR Negative (Negative) 12/01/19 19:25 Shiga Toxin (PCR) Negative (Negative) 12/01/19 19:25 Path Cons Comment 12/01/19 16:15
[2019-12-05] MEDS: Magic Mouthwash 119 ML BTL 10 ML MM ×2 (10:57→20:45)
[2019-12-05 11:00] VITALS: O2SAT 95
[2019-12-05 12:16] LABS: INR 1.3 (0.9-1.1); Prothrombin Time 13.1 sec (9.3-11.0)
[2019-12-05 12:17] LABS: Absolute Lymphocyte Count 0.09 k/cumm (1.2-3.4); Absolute Monocyte Count 0.03 k/cumm (0.11-0.7); HCT 22.6 % (36.0-46.0); HGB 7.1 g/dL (12.0-15.5); Mean Corp. HGB Concentration 31.4 g/dL (32.0-36.0); Mean Corpuscular Hemoglobin 29.8 pg (27.0-33.0); Monocytes % 16.7; Neutrophils % 33.3; RBC 2.38 m/cumm (4.00-5.20); RBC Distribution Width 17.4 % (11.7-14.6)
[2019-12-05 12:53] LABS: Diff Comment Agrees w/ Instrument
[2019-12-05 12:55] LABS: Platelet Count 16 x1000/uL (130-400); White Blood Cell Count 0.18 k/cumm (4.4-10.8)
[2019-12-05 12:56] LABS: Absolute Neutrophil Count 0.06 k/cumm (1.2-6.7)
[2019-12-05 12:57] LABS: Hypochromasia 2+; Polychromasia Present
--- NOTE | 2019-12-05 12:57 | CHAPLAIN ---
I had a short visit with Faviola and her family today. They were pleasant, but not interested in further conversations or visits from me. Fvaiola had told Dr. Neville yesterday that they did not want a visit and I had forgotten that, so visited today. Faviola is receiving comfort measures only and will likely during this admission. I will not visit again unless requested by family.
[2019-12-05 12:58] LABS: Poikilocytes 2+
--- NOTE | 2019-12-05 13:28 | SCONE_ITS ---
Date of service: 12/05/19 Time of Service: 13:28 Assessment and Plan Assessment and plan (1) Ascites: Status: Acute Assessment and plan: Patient was complaining of more pain and abdominal distension this am. While awaiting lab work, she was started on a morphine drip and is now very comfortable. Platelet count returned at 16,000. We agreed to hold off on paracentesis as her pain is controlled and platelet count is very low. Please contact with any further needs. [facility] Medical History Atrial fibrillation (Chronic) CAD (coronary artery disease) (Chronic) Diabetic neuropathy (Chronic) Hyperlipidemia (Chronic) Hypertension (Chronic) Insulin dependent type 2 diabetes mellitus (Chronic) Obesity (Chronic 02/11/15) Obstructive sleep apnea (Chronic) Primary pancreatic cancer with metastasis to other site (Chronic) Tubular adenoma of colon (Acute) Surgical History section X 2 Cholecystectomy S/P appendectomy (Acute) S/P hysterectomy (Acute) S/P laparotomy (Acute) Social History Smoking/Tobacco Use Status: Never Alcohol Intake: never Drug use: Never Substance use type: does not use Household members: spouse current occupation: retired Do you feel safe at home: Yes Do you feel safe in your relationship?: Yes Results Last Vital Signs Temp 98.1 F 12/03/19 07:45 Pulse 68 12/03/19 14:13 Resp 18 12/03/19 07:45 BP 126/62 12/03/19 07:45 Pulse Ox 96 12/04/19 10:30 Labs Result diagrams: 12/05/19 11:25 12/03/19 06:40 Labs: Laboratory Results - last 24 hr 12/01/19 12/05/19 12/05/19 16:15 11:25 11:25 WBC 0.18 L* RBC 2.38 L Hgb 7.1 L Hct 22.6 L MCV 95.0 MCH 29.8 MCHC 31.4 L RDW 17.4 H Plt Count 16 L* D MPV Immature Gran % 0.0 Neutrophils % 33.3 Lymphocytes % 50.0 Monocytes % 16.7 Eosinophils % 0.0 Basophils % 0.0 Absolute Neutrophils 0.06 L* Absolute Lymphocytes 0.09 L Absolute Monocytes 0.03 L Absolute Eosinophils 0.00 Absolute Basophils 0.00 Differential Comment Agrees w/ instrument RBC Morphology See below Polychromasia Present Hypochromasia 2+ Poikilocytosis 2+ PT 13.1 H INR 1.3 H Path Cons Comment
--- NOTE | 2019-12-05 15:53 | WOUNDCARE ---
Wound Care Report Pt has transitioned to GRAVE CLEANER since initial consult. New recommendations geared toward comfort: Left Ear- leave open to air Left Hip- Apply hydrocolloid dressing (duoderm) to wound. Change every 5 days and PRN. Left lateral Ankle- Cover with Mepilex w/border. Change every 5 days and PRN. Left Shoulder- Cleanse skin tear with NS. Apply skin prep to periwound. Place Tegaderm absorbent over skin tear. Change 12/12/19 and PRN. Reposition Q2H. Viola Glover NP notified of recommendations Will continue to follow Pt while she is in the hospital.
[2019-12-05] MEDS: Acetaminophen 650 MG SUPP PR (16:06)
[2019-12-06] MEDS: Magic Mouthwash 119 ML BTL 10 ML MM (05:30)
[2019-12-06] MEDS: LORazepam 2 MG/ML VIAL 0.5 MG IVP (08:17)
[2019-12-06] MEDS: Acetaminophen 650 MG SUPP PR (08:17)
[2019-12-06] MEDS: Normal Saline Flush 10 ML SYR IVP ×2 (08:18→10:54)
--- NOTE | 2019-12-06 09:06 | PDOC.CMPRO ---
Care Management Progress Note CM reviewed options for arrangements with Faviola's family. CM coordinated and facilitated intake with Pineda Frank at [facility] in [place], [place]. CM provided needed paperwork to the family, obtained signatures and faxed back to [facility]. CM provided a copy to chart and notified [facility] of paperwork and check for [facility] left by the family for final arrangements. CM provided contact information for notification at time of . CM provided support to Aric and his daughter's throughout the day as needed.
[2019-12-06 09:46] VITALS: O2SAT 95
--- NOTE | 2019-12-06 10:50 | W.PM.PROGNOT ---
Date of Service Date of service: 12/06/19 Time of Service: 10:50 Assessment and Plan Assessment and plan (1) Primary pancreatic cancer with metastasis to other site: Status: Chronic Assessment and plan: comfort care only. continue morphine drip and prn ativan, titrate as needed. (2) Discharge planning issues: Status: Acute Assessment and plan: plan for end of life care here, DNR/DNI. Subjective Subjective Patient reports: pain is less Interval history since last seen: patient is unresponsive on my exam, family who has been at bedside reports that she has been resting comfortably since receiving ativan. questions answered. will notify staff for signs of discomfort or changes. Exam Const General: no acute distress, ill appearing chronically and other (obtunded) Nutritional Appearance: obese Orientation: obtunded [facility] General nose exam: nasal discharge bloody Mouth: oral mucosa abnormal (dry, old blood ) Resp Effort & Inspection: abnormal respiratory pattern apneic pattern (intermittently) GI Inspection: distended and obesity Palpation: soft Neuro General: obtunded Extrem General: edema Objective Objective Clinical Data: Abnormal lab results 12/05/19 12/05/19 Range/Units 11:25 11:25 WBC 0.18 L* (4.4-10.8) k/cumm RBC 2.38 L (4.00-5.20) m/cumm Hgb 7.1 L (12.0-15.5) g/dL Hct 22.6 L (36.0-46.0) % MCHC 31.4 L (32.0-36.0) g/dL RDW 17.4 H (11.7-14.6) % Plt Count 16 L* D (130-400) x1000/uL Absolute Neutrophils 0.06 L* (1.2-6.7) k/cumm Absolute Lymphocytes 0.09 L (1.2-3.4) k/cumm Absolute Monocytes 0.03 L (0.11-0.7) k/cumm PT 13.1 H (9.3-11.0) sec INR 1.3 H (0.9-1.1) Vital Signs Temperature 36.7 C 12/03/19 07:45 Temperature Source Tympanic 12/03/19 07:45 Pulse 68 12/03/19 14:13 Pulse Rhythm Irregular 12/04/19 09:36 Pulse 72 12/01/19 18:01 Respiratory Rate 18 12/03/19 07:45 Respiratory Effort 12/06/19 04:00 Respiratory Depth Normal 12/06/19 04:00 Respiratory Pattern Normal 12/06/19 04:00 Blood Pressure 126/62 12/03/19 07:45 Blood Pressure Mean 63 12/01/19 18:00 Blood Pressure Position Supine 12/01/19 16:03 Pulse Oximetry 95 12/06/19 09:46 Oxygen Delivery Method Room Air 12/06/19 09:46 Oxygen Flow Rate 0 12/06/19 09:46 Pain Level 8 12/05/19 10:00 Comment 12/02/19 13:35 Intake & Output 12/05/19 12/05/19 12/06/19 11:59 23:59 11:59 Intake Total 40 / 90 50 / 90 Balance 40 / 90 50 / 90 Intake: Oral 40 / 90 50 / 90 Other: Comment no void this shift Laboratory Results WBC 0.18 k/cumm (4.4-10.8) L* 12/05/19 11:25 RBC 2.38 m/cumm (4.00-5.20) L 12/05/19 11:25 Hgb 7.1 g/dL (12.0-15.5) L 12/05/19 11:25 Hct 22.6 % (36.0-46.0) L 12/05/19 11:25 MCV 95.0 fL (80-95) 12/05/19 11:25 MCH 29.8 pg (27.0-33.0) 12/05/19 11:25 MCHC 31.4 g/dL (32.0-36.0) L 12/05/19 11:25 RDW 17.4 % (11.7-14.6) H 12/05/19 11:25 Plt Count 16 x1000/uL (130-400) L* D 12/05/19 11:25 MPV fL (8.0-11.0) 12/05/19 11:25 Immature Gran % 0.0 % 12/05/19 11:25 Neutrophils % 33.3 12/05/19 11:25 Band Neutrophils % 2.0 % 12/02/19 06:43 Lymphocytes % 50.0 12/05/19 11:25 Monocytes % 16.7 12/05/19 11:25 Eosinophils % 0.0 12/05/19 11:25 Basophils % 0.0 12/05/19 11:25 Absolute Neutrophils 0.06 k/cumm (1.2-6.7) L* 12/05/19 11:25 Absolute Lymphocytes 0.09 k/cumm (1.2-3.4) L 12/05/19 11:25 Absolute Monocytes 0.03 k/cumm (0.11-0.7) L 12/05/19 11:25 Absolute Eosinophils 0.00 k/cumm (0.0-0.7) 12/05/19 11:25 Absolute Basophils 0.00 k/cumm (0.0-0.2) 12/05/19 11:25 Nucleated RBCs 1 /100WBC 12/02/19 06:43 Differential Comment Agrees w/ instrument 12/05/19 11:25 RBC Morphology See below 12/05/19 11:25 Polychromasia Present 12/05/19 11:25 Hypochromasia 2+ 12/05/19 11:25 Poikilocytosis 2+ 12/05/19 11:25 Anisocytosis 2+ 12/03/19 06:40 PT 13.1 sec (9.3-11.0) H 12/05/19 11:25 INR 1.3 (0.9-1.1) H 12/05/19 11:25 APTT 36.8 sec (21.0-31.4) H 12/01/19 16:15 VBG pH 7.37 (7.35-7.45) 12/01/19 16:15 VBG pCO2 47 mm/Hg (34-47) 12/01/19 16:15 VBG pO2 38 mm/Hg (28-44) 12/01/19 16:15 VBG HCO3 27 mmol/L (22-28) 12/01/19 16:15 VBG Total CO2 26 mmol/L (22-29) 12/01/19 16:15 VBG O2 Saturation 69 % (70-80) L 12/01/19 16:15 VBG Base Excess 1.8 mmol/L (-3-3) 12/01/19 16:15 Sodium 143 mmol/L (136-145) 12/03/19 06:40 Potassium 3.3 mmol/L (3.5-5.1) L 12/03/19 06:40 Chloride 107 mmol/L (98-107) 12/03/19 06:40 Carbon Dioxide 26.9 mmol/L (21.0-32.0) 12/03/19 06:40 Anion Gap 9.1 mmol/L (3-11) 12/03/19 06:40 BUN 32 mg/dL (7-18) H 12/03/19 06:40 Creatinine 1.86 mg/dL (0.55-1.02) H 12/03/19 06:40 Estimated GFR/1.73 m2 27.11 (mL/min/1.73m2) 12/03/19 06:40 Glucose 121 mg/dL (74-106) H 12/03/19 06:40 Lactate 1.3 mmol/L (0.6-1.4) 12/01/19 16:15 Calcium 6.7 mg/dL (8.5-10.1) L 12/03/19 06:40 Magnesium 1.5 mg/dL (1.8-2.4) L 12/03/19 06:40 Total Bilirubin 0.6 mg/dL (0.2-1.0) 12/01/19 16:15 AST 36 U/L (15-37) 12/01/19 16:15 ALT 24 U/L (14-59) 12/01/19 16:15 Alkaline Phosphatase 149 U/L (46-116) H 12/01/19 16:15 Total Protein 5.6 g/dL (6.4-8.2) L 12/01/19 16:15 Albumin 1.1 g/dL (3.4-5.0) L 12/01/19 16:15 Lipase 41 U/L (73-393) 12/01/19 16:15 TSH 2.65 uIU/mL (0.36-3.74) 12/02/19 01:00 Free T4 1.04 ng/dL (0.76-1.46) 12/02/19 01:00 Urine Color Yellow (Yellow) 12/02/19 17:00 Urine Clarity Cloudy (Clear) 12/02/19 17:00 Urine pH 5.0 (5-8) 12/02/19 17:00 Ur Specific [place] 1.020 (1.005-1.025) 12/02/19 17:00 Urine Protein Trace mg/dL (Negative) H 12/02/19 17:00 Urine Ketones Negative mg/dL (Negative) 12/02/19 17:00 Urine Blood Trace-intact (Negative) H 12/02/19 17:00 Urine Nitrite Negative (Negative) 12/02/19 17:00 Urine Bilirubin Negative (Negative) 12/02/19 17:00 Urine Urobilinogen 0.2 EU/dL (Up TO 0.2) 12/02/19 17:00 Ur Leukocyte Esterase Negative (Negative) 12/02/19 17:00 Urine RBC 3-5 HPF (0-2) H 12/02/19 17:00 Urine WBC 3-5 HPF (0-5) 12/02/19 17:00 Ur Epithelial Cells Many HPF (Negative) 12/02/19 17:00 Urine Crystals Many amorphous HPF (Negative) 12/02/19 17:00 Urine Bacteria Moderate HPF (Negative) 12/02/19 17:00 Urine Mucus (Negative) 12/02/19 17:00 Urine Other Few transitional (Negative) 12/02/19 17:00 Ur Culture Indicated? C&s done as ordered 12/02/19 17:00 Urine Glucose Negative mg/dL (Negative) 12/02/19 17:00 Stool Campylobacter PCR Negative (Negative) 12/01/19 19:25 Stool Salmonella PCR Negative (Negative) 12/01/19 19:25 Stool Shigella PCR Negative (Negative) 12/01/19 19:25 Shiga Toxin (PCR) Negative (Negative) 12/01/19 19:25 Path Cons Comment 12/01/19 16:15
[2019-12-06] MEDS: Pantoprazole 40 MG VIAL IVP (10:53)
--- NOTE | 2019-12-06 11:02 | NUR.NOTE ---
Nursing Note: pT REQUESTING ALL 4 RAILS UP AT THIS TIME.
--- NOTE | 2019-12-06 17:13 | NUR.NOTE ---
Nursing Note: At 1650 hrs. , pt was on apneic breathing, shallow/ deep about 3-4 seconds while rendering comfort care, Family around. At 1703, found pt not breathing, pulselless, charge weigher called and verified. at 1705 hrs.
--- NOTE | 2019-12-07 15:21 | W.PM.DDS ---
Date of service: 12/07/19 Discharge Sum: Prov Provider Consults: 12/02/19 09:57 Palliative Care Consult [CONS] Routine Consultation Status:: Follow-up needed Clarification:: Manage/follow per spec. Reason for consult:: metastatic pancreatic cancer 12/02/19 14:30 Hospice Consult [CONS] Routine Consulting Provider: Kae Batista Consultation Status:: Follow-up needed Clarification:: Manage/follow per spec. Reason for consult:: metastatic pancreatic cancer 12/02/19 15:12 Wound Care Consult [CONS] Routine Consultation Status:: Contact made by MD Clarification:: Manage/follow per spec. Reason for consult:: multiple pressure injuries present on admission 12/04/19 10:17 Surgical Consult [CONS] Routine Consulting Provider: Indy Kenyon Consultation Status:: Contact made by Clarification:: Manage/follow per spec. Reason for consult:: ascites, thrombocytopenia - consult for paracenthesis Discharge Sum: Diag Contributing Factors (1) Primary pancreatic cancer with metastasis to other site: (2) Discharge planning issues:
== END 2019-12-06 18:00 | disposition expired | DRG 435 ==
LOC: ER 19:01 → MS 20:56
PROVIDERS: Surgery; Admitting Provider General Practice; Emergency Provider Emergency Medicine; PCP Family Medicine; Visit Provider Internal Medicine
DX: C25.9 Malignant neoplasm of pancreas, unspecified (principal); L89.523 Pressure ulcer of left ankle, stage 3; D61.810 Antineoplastic chemotherapy induced pancytopenia; J81.0 Acute pulmonary edema; C79.9 Secondary malignant neoplasm of unspecified site; C18.8 Malignant neoplasm of overlapping sites of colon; K52.1 Toxic gastroenteritis and colitis; N17.9 Acute kidney failure, unspecified; T45.1X5A Adverse effect of antineoplastic and immunosuppressive drugs, initial encounter; R68.0 Hypothermia, not associated with low environmental temperature; E83.42 Hypomagnesemia; R19.5 Other fecal abnormalities; I48.91 Unspecified atrial fibrillation; Z79.01 Long term (current) use of anticoagulants; Z51.5 Encounter for palliative care; G47.33 Obstructive sleep apnea (adult) (pediatric); E11.9 Type 2 diabetes mellitus without complications; Z79.4 Long term (current) use of insulin; E11.649 Type 2 diabetes mellitus with hypoglycemia without coma; I10 Essential (primary) hypertension; L89.812 Pressure ulcer of head, stage 2; L89.220 Pressure ulcer of left hip, unstageable
CPT/HCPCS: 36591; 80048; 80053; 82805; 82947; 83690; 87040; 87505; 93005; 96361; 96365; 96366; 96375; 99221; 99222; 99231; 99232; 99233; 99238; 99254; 99285; 71045; 81003; 81015; 83605; 83735; 84439; 84443; 85014; 85018; 85025; 85610; 85730; 87081; 87086; 87324; 93010; 99219; 99284; G0378; J1941; J1956; J2060; J2270; J2405; J3475; J3480; J3490